=== PATIENT | female | born 1965 | race Caucasian/White ===

== ENCOUNTER 2020-07-29 06:09 | Outpatient (REF) | payer OTHER, SELFPAY ==
[2020-07-29 06:54] LABS: Basophils Percent Auto 0.4 % (0-2); Eosinophils Absolute Auto 0.4 X10*3/uL (0.0-0.4); Eosinophils Percent Auto 8.3 % (0-4); Hematocrit 42.2 % (37-47); Imm Gran Abs Auto 0.01 X10*3/uL (0.00-0.03); Imm Gran Pct Auto 0.2 % (0.0-0.4); Lymphocytes Absolute Auto 2.1 X10*3/uL (1.2-4.9); Lymphocytes Percent Auto 41.9 % (20-40); Mean Corpuscular HGB Conc 33.2 g/dl (31.0-35.0); Mean Corpuscular Hemoglobin 30.7 pg (27.0-33.0); Mean Corpuscular Volume 92.5 fL (80-98); Mean Platelet Volume 10.3 fL (9.4-12.3); Monocytes Absolute Auto 0.4 X10*3/uL (0.1-1.2); Monocytes Percent Auto 7.9 % (2-11); Neutrophils Percent Auto 41.3 % (45-73); Platelet Count 181 X10*3/uL (160-400); Red Blood Count 4.56 X10*6/uL (4.20-5.50); White Blood Count 4.9 X10*3/uL (4.8-10.8)
[2020-07-29 06:55] LABS: MANUAL DIFF FLAG NO
[2020-07-29 07:08] LABS: Glucose Urine UA NEG (NEG); Leukocyte Esterase Urine NEG (NEG); Nitrite Urine NEG (NEG); PH 7.5 (5.0-8.0); Specific Gravity - Urine 1.015 (1.005-1.025); Urine Blood NEG (NEG); Urine Ketones NEG (NEG); Urine Protein NEG (NEG-TRACE)
[2020-07-29 07:09] LABS: Appearance Urine CLEAR; Color Urine YELLOW
[2020-07-29 07:26] LABS: Alanine Aminotransferase 21 U/L (0-31); Albumin Level 4.3 g/dL (3.5-5.0); Alkaline Phosphatase 85 U/L (39-117); Amylase 132 U/L (28-100); Anion Gap 10 (12-20); Aspartate Amino Transferase 23 U/L (5-31); Bilirubin Direct 0.4 mg/dL (0.0-0.5); Bilirubin Total 0.8 mg/dL (0.0-1.0); Blood Urea Nitrogen 12 mg/dL (9-16); Calcium 9.4 mg/dL (8.4-10.2); Carbon Dioxide 30 mmol/L (22-29); Chloride 102 mmol/L (96-108); Estimated Glomerular Filt Rate > 60; Glucose Fasting 99 mg/dL (60-99); Lipase 36 U/L (8-78); Potassium 4.4 mmol/l (3.3-5.1); Sodium 138 mmol/L (135-145); Total Protein 7.2 g/dL (6.5-8.0)
== END 2020-07-29 06:10 | disposition home or self-care (01) ==
LOC: HO.LAB 06:09
PROVIDERS: PCP Internal Medicine; Visit Provider Internal Medicine
DX: R10.9 Unspecified abdominal pain (principal)
CPT/HCPCS: 36415; 80053; 80076; 81003; 82150; 82248; 83690; 85025

== ENCOUNTER 2021-01-05 09:39 | Outpatient (REF) | payer OTHER, SELFPAY ==
[2021-01-05 11:11] LABS: MANUAL DIFF FLAG NO
[2021-01-05 11:32] LABS: Basophils Percent Auto 0.6 % (0-2); Eosinophils Absolute Auto 0.5 X10*3/uL (0.0-0.4); Eosinophils Percent Auto 8.6 % (0-4); Hematocrit 40.9 % (37-47); Hemoglobin 13.7 g/dl (12.0-16.0); Imm Gran Abs Auto 0.01 X10*3/uL (0.00-0.03); Imm Gran Pct Auto 0.2 % (0.0-0.4); Lymphocytes Percent Auto 37.5 % (20-40); Mean Corpuscular HGB Conc 33.5 g/dl (31.0-35.0); Mean Corpuscular Volume 92.5 fL (80-98); Mean Platelet Volume 10.3 fL (9.4-12.3); Monocytes Absolute Auto 0.4 X10*3/uL (0.1-1.2); Monocytes Percent Auto 6.8 % (2-11); Neutrophils Absolute Auto 2.5 X10*3/uL (2.0-8.3); Neutrophils Percent Auto 46.3 % (45-73); Platelet Count 192 X10*3/uL (160-400); Red Blood Count 4.42 X10*6/uL (4.20-5.50); Red Cell Distribution Width 11.6 % (11.0-16.0); White Blood Count 5.3 X10*3/uL (4.8-10.8)
[2021-01-05 12:00] LABS: Alanine Aminotransferase 14 U/L (0-31); Albumin Level 4.2 g/dL (3.5-5.0); Alkaline Phosphatase 83 U/L (39-117); Anion Gap 12 (12-20); Aspartate Amino Transferase 17 U/L (5-31); Bilirubin Total 0.9 mg/dL (0.0-1.0); Blood Urea Nitrogen 16 mg/dL (9-16); Calcium 9.5 mg/dL (8.4-10.2); Carbon Dioxide 28 mmol/L (22-29); Chloride 106 mmol/L (96-108); Cholesterol 146 mg/dL; Estimated Glomerular Filt Rate > 60; Glucose Fasting 85 mg/dL (60-99); HDL Cholesterol 50 mg/dL; LDL Cholesterol Calculated 79 mg/dl; Potassium 4.5 mmol/L (3.3-5.1); Sodium 141 mmol/L (135-145); Total Protein 6.8 g/dL (6.5-8.0); Triglycerides 86 mg/dL
[2021-01-05 12:07] LABS: Thyroid Stimulating Hormone 1.07 uIU/mL (0.32-4.0)
== END 2021-01-05 09:40 | disposition home or self-care (01) ==
LOC: HO.MANLDS 09:39
PROVIDERS: PCP Internal Medicine; Visit Provider Internal Medicine
DX: Z00.00 Encounter for general adult medical examination without abnormal findings (principal)
CPT/HCPCS: 36415; 80053; 80061; 84443; 85025

== ENCOUNTER 2021-03-19 07:17 | Outpatient (REF) | payer OTHER, SELFPAY ==
--- NOTE | ~2021-03-19 | MM_ITS ---
EXAMINATION: MM SCREENING DIGITAL BREAST TOMOSYNTHESIS, BILATERAL CLINICAL INFORMATION: Screening. Asymptomatic. The lifetime risk of breast cancer based on the Tyrer-Cuzick Model is 14%. COMPARISON: Mammography: 03/25/2020, 03/10/2020, 02/27/2019, 02/23/2018; targeted right breast ultrasound 03/25/2020 TECHNIQUE: Digital breast tomosynthesis is performed in both the craniocaudal and mediolateral oblique views along with computer-aided detection (CAD). Synthesized 2D images are generated from the tomosynthesis. FINDINGS: There are scattered areas of fibroglandular density (ACR BI-RADS breast composition Category b). There are no significant masses, abnormal calcifications, or other abnormalities. The small cyst mid medial right breast has regressed since prior imaging, no longer clearly seen. The axilla and skin contours are unremarkable. MM/MM tomosynthesis screening BI IMPRESSION: There are no significant changes from prior study. ASSESSMENT: BI-RADS 2: Benign RECOMMENDATION: Routine annual mammography screening. This patient's information was entered into a reminder system with a target due date for their next mammogram.
== END 2021-03-19 07:18 | disposition home or self-care (01) ==
LOC: HO.MAMMO 07:17
PROVIDERS: PCP Internal Medicine; Visit Provider Internal Medicine
DX: Z12.31 Encounter for screening mammogram for malignant neoplasm of breast (principal)
CPT/HCPCS: 77063; 77067

== ENCOUNTER 2022-03-23 07:16 | Outpatient (REF) | payer OTHER, SELFPAY ==
--- NOTE | ~2022-03-23 | MM_ITS ---
EXAMINATION: MM SCREENING DIGITAL BREAST TOMOSYNTHESIS, BILATERAL CLINICAL INFORMATION: Screening. Asymptomatic. The lifetime risk of breast cancer based on the Tyrer-Cuzick Model is 11.0%. COMPARISON: Mammography: March 19, 2021 and studies dating back to January 04, 2014 TECHNIQUE: Digital breast tomosynthesis is performed in both the craniocaudal and mediolateral oblique views along with computer-aided detection (CAD). Synthesized 2D images are generated from the tomosynthesis. FINDINGS: There are scattered areas of fibroglandular density (ACR BI-RADS breast composition Category b). There are no significant masses, abnormal calcifications, or other abnormalities. MM/MM tomosynthesis screening BI IMPRESSION: There are no significant changes from prior study. ASSESSMENT: BI-RADS 1: Negative RECOMMENDATION: Routine annual mammography screening. This patient's information was entered into a reminder system with a target due date for their next mammogram.
== END 2022-03-23 07:17 | disposition home or self-care (01) ==
LOC: HO.MAMMO 07:16
PROVIDERS: Visit Provider Internal Medicine
DX: Z12.31 Encounter for screening mammogram for malignant neoplasm of breast (principal)
CPT/HCPCS: 77063; 77067

== ENCOUNTER 2022-04-30 07:45 | Outpatient (REF) | payer OTHER, SELFPAY ==
--- NOTE | ~2022-04-30 | XR_ITS ---
EXAMINATION: XR THORACIC SPINE XR RIBS, LEFT CLINICAL INFORMATION: Left-sided rib pain. Pain thoracic spine. COMPARISON: CTA chest 09/15/2018 CT abdomen and pelvis 11/15/2017. TECHNIQUE: Thoracic spine is imaged in 3 views. Left ribs are imaged in 3 views. There are total of 6 views. FINDINGS: There is normal thoracic segmentation with 12 rib-bearing thoracic vertebrae and normal thoracic kyphosis. There is mild chronic wedging at T12 similar to the CT 2018 and 2017. There is no interval vertebral compression, spondylolisthesis, destructive process, or paraspinal soft tissue swelling. No interval focal disc narrowing or erosive changes or endplate sclerosis. The left ribs show no visible fracture or destructive process. There are degenerative disc changes mid cervical spine. XR/XR thoracic spine 2V IMPRESSION: -Thoracic: No acute abnormality. -Left ribs: No visible fracture or destructive process.
--- NOTE | ~2022-04-30 | XR_ITS ---
EXAMINATION: XR THORACIC SPINE XR RIBS, LEFT CLINICAL INFORMATION: Left-sided rib pain. Pain thoracic spine. COMPARISON: CTA chest 09/15/2018 CT abdomen and pelvis 11/15/2017. TECHNIQUE: Thoracic spine is imaged in 3 views. Left ribs are imaged in 3 views. There are total of 6 views. FINDINGS: There is normal thoracic segmentation with 12 rib-bearing thoracic vertebrae and normal thoracic kyphosis. There is mild chronic wedging at T12 similar to the CT 2018 and 2017. There is no interval vertebral compression, spondylolisthesis, destructive process, or paraspinal soft tissue swelling. No interval focal disc narrowing or erosive changes or endplate sclerosis. The left ribs show no visible fracture or destructive process. There are degenerative disc changes mid cervical spine. XR/XR ribs LT 2V IMPRESSION: -Thoracic: No acute abnormality. -Left ribs: No visible fracture or destructive process.
[2022-04-30 08:31] LABS: MANUAL DIFF FLAG NO
[2022-04-30 09:14] LABS: Basophils Percent Auto 0.8 % (0-2); Eosinophils Absolute Auto 0.5 X10*3/uL (0.0-0.4); Eosinophils Percent Auto 10.9 % (0-4); Hemoglobin 13.6 g/dl (12.0-16.0); Imm Gran Abs Auto 0.01 X10*3/uL (0.00-0.03); Imm Gran Pct Auto 0.2 % (0.0-0.4); Lymphocytes Absolute Auto 1.8 X10*3/uL (1.2-4.9); Mean Corpuscular HGB Conc 33.2 g/dl (31.0-35.0); Mean Corpuscular Volume 90.5 fL (80.0-98.0); Monocytes Absolute Auto 0.3 X10*3/uL (0.1-1.2); Monocytes Percent Auto 7.1 % (2-11); Neutrophils Absolute Auto 2.1 x10*3/uL (2.0-8.3); Platelet Count 195 X10*3/uL (160-400); Red Blood Count 4.53 X10*6/uL (4.20-5.50); Red Cell Distribution Width 12.3 % (11.0-16.0); White Blood Count 4.8 X10*3/uL (4.8-10.8)
[2022-04-30 09:46] LABS: Alanine Aminotransferase 17 U/L (0-31); Alkaline Phosphatase 81 U/L (39-117); Anion Gap 14 (12-20); Aspartate Amino Transferase 19 U/L (5-31); Bilirubin Total 0.5 mg/dL (0.0-1.0); Blood Urea Nitrogen 18 mg/dL (9-16); Calcium 9.2 mg/dL (8.4-10.2); Carbon Dioxide 27 mmol/L (22-29); Chloride 107 mmol/L (96-108); Cholesterol 158 mg/dL; Estimated Glomerular Filt Rate > 60; Glucose Random 97 mg/dL (60-115); HDL Cholesterol 59 mg/dL; LDL Cholesterol Calculated 88 mg/dl; Potassium 4.8 mmol/L (3.3-5.1); Sodium 143 mmol/L (135-145); Total Protein 6.8 g/dL (6.5-8.0); Triglycerides 58 mg/dL
[2022-04-30 10:09] LABS: Thyroid Stimulating Hormone 1.26 uIU/mL (0.32-4.0)
== END 2022-04-30 07:46 | disposition home or self-care (01) ==
LOC: HO.LAB 07:45
PROVIDERS: PCP Internal Medicine; Visit Provider Internal Medicine
DX: Z00.01 Encounter for general adult medical examination with abnormal findings (principal); M54.6 Pain in thoracic spine; R07.81 Pleurodynia
CPT/HCPCS: 36415; 71100; 72070; 80053; 80061; 82306; 84443; 85025

== ENCOUNTER 2022-10-18 16:08 | Outpatient (REF) | payer OTHER, SELFPAY ==
[2022-10-18 18:11] LABS: Appearance Urine Cloudy; Color Urine Yellow; Glucose Urine UA Negative (Negative); Leukocyte Esterase Urine Trace (Negative); Nitrite Urine Negative (Negative); PH 5.5 (5.0-9.0); Specific Gravity - Urine >= 1.030 (1.005-1.025); UMIC TRIGGER UACC YES; Urine Blood Negative (Negative); Urine Ketones Trace mg/dL (Negative); Urine Protein Trace mg/dL (Neg-Trace)
[2022-10-18 18:18] LABS: Bacteria Urine None Seen (None Seen); Calcium Oxalate Crystals Urine Present; Hyaline Casts Urine 0-2 /LPF (0-2); Squamous Epithelial Cell Urine 0-2 /HPF (0-2); WBC Urine 0-5 /HPF (0-5)
== END 2022-10-18 16:09 | disposition home or self-care (01) ==
LOC: HO.MANLDS 16:08
PROVIDERS: Visit Provider Physician Assistant
DX: N10 Acute pyelonephritis (principal)
CPT/HCPCS: 81001; 87086

== ENCOUNTER 2022-10-19 16:17 | Outpatient (REF) | payer OTHER, SELFPAY ==
[2022-10-19 17:55] LABS: Anion Gap 13 (12-20); Blood Urea Nitrogen 13 mg/dL (9-16); Calcium 8.8 mg/dL (8.4-10.2); Carbon Dioxide 26 mmol/L (22-29); Chloride 106 mmol/L (96-108); Estimated Glomerular Filt Rate > 60; Glucose Random 91 mg/dL (60-115); Potassium 3.8 mmol/L (3.3-5.1); Sodium 141 mmol/L (135-145)
== END 2022-10-19 16:18 | disposition home or self-care (01) ==
LOC: HO.LAB 16:17
PROVIDERS: PCP Internal Medicine; Visit Provider Physician Assistant
DX: R10.12 Left upper quadrant pain (principal); N10 Acute pyelonephritis
CPT/HCPCS: 36415; 80048

== ENCOUNTER 2022-10-21 08:44 | Outpatient (REF) | payer OTHER, SELFPAY ==
--- NOTE | ~2022-10-21 | CT_ITS ---
EXAMINATION: CT ABDOMEN AND PELVIS WITHOUT CONTRAST CLINICAL INFORMATION: Left upper quadrant pain COMPARISON: Previous CT of the abdomen and pelvis November 2017 TECHNIQUE: Multidetector volumetric imaging was performed from the superior aspect of the liver through the pubic symphysis. Sagittal and coronal reformatted images were obtained on the technologist's workstation. This CT examination was performed using dose optimization techniques as appropriate, variously including the following: *Automated exposure control *Adjustment of mA and/or kV according to patient size (this includes techniques or standardized protocols for targeted exams where dose is matched to indication/reason for exam; i.e. extremities or head) *Use of iterative reconstruction technique DLP: 486 mGy-cm FINDINGS: LUNG BASES: The visualized lung bases are unremarkable. LIVER, GALLBLADDER, AND BILIARY TREE: The liver is normal in size, shape, and attenuation. No focal hepatic lesion or biliary ductal dilatation is present. The gallbladder has been removed. PANCREAS: Unremarkable. SPLEEN: Unremarkable. ADRENAL GLANDS: Unremarkable. KIDNEYS AND URETERS: The kidneys are normal in size, shape, and attenuation. No hydronephrosis, hydroureter, or calculi seen. No perinephric stranding. BLADDER: Unremarkable. GASTROINTESTINAL TRACT: Mild diverticulosis of the colon. The small and large bowel are otherwise unremarkable. The appendix is unremarkable. ABDOMINAL WALL: No significant hernia is appreciated. LYMPH NODES: Normal. VASCULAR: Unremarkable. PELVIC VISCERA: Unremarkable. OSSEOUS STRUCTURES: Unremarkable. CT/CT abdomen pelvis wo IV con IMPRESSION: Mild diverticulosis. No evidence of diverticulitis. Fleischner guidelines were followed.
[2022-10-21] MEDS: Barium Sulfate Oral (Mocha) 450 ML ORAL.SUSP 900 ML PO (11:25)
== END 2022-10-21 08:45 | disposition home or self-care (01) ==
LOC: HO.CT 08:44
PROVIDERS: PCP Internal Medicine; Visit Provider Physician Assistant
DX: R10.12 Left upper quadrant pain (principal)
CPT/HCPCS: 74176

== ENCOUNTER 2023-04-19 07:27 | Outpatient (REF) | payer OTHER, SELFPAY | END 2023-04-19 07:28 | disposition home or self-care (01) | LOC: HO.MAMMO 07:27 | PROVIDERS: PCP Internal Medicine; Visit Provider Internal Medicine | DX: Z12.31 Encounter for screening mammogram for malignant neoplasm of breast (principal) | CPT/HCPCS: 77063; 77067 ==

== ENCOUNTER → 2023-04-19 07:45 | Outpatient (BNV) | payer OTHER, SELFPAY | PROVIDERS: PCP Internal Medicine; Visit Provider Radiology Diagnostic Radiology | DX: Z12.31 Encounter for screening mammogram for malignant neoplasm of breast (principal) | CPT/HCPCS: 77063; 77067 ==

== ENCOUNTER 2023-05-19 06:43 | Outpatient (REF) | payer OTHER, SELFPAY ==
[2023-05-19 07:06] LABS: MANUAL DIFF FLAG NO
[2023-05-19 08:12] LABS: Basophils Percent Auto 0.6 % (0-2); Eosinophils Absolute Auto 0.3 X10*3/uL (0.0-0.4); Eosinophils Percent Auto 5.6 % (0-4); Hematocrit 42.8 % (37.0-47.0); Imm Gran Abs Auto 0.01 X10*3/uL (0.00-0.03); Imm Gran Pct Auto 0.2 % (0.0-0.4); Lymphocytes Absolute Auto 1.7 X10*3/uL (1.2-4.9); Lymphocytes Percent Auto 36.8 % (20-40); Mean Corpuscular HGB Conc 32.7 g/dl (31.0-35.0); Mean Corpuscular Hemoglobin 30.5 pg (27.0-33.0); Mean Corpuscular Volume 93.2 fL (80.0-98.0); Mean Platelet Volume 10.5 fL (9.4-12.3); Monocytes Absolute Auto 0.3 X10*3/uL (0.1-1.2); Monocytes Percent Auto 6.7 % (2-11); Neutrophils Absolute Auto 2.3 x10*3/uL (2.0-8.3); Neutrophils Percent Auto 50.1 % (45-73); Platelet Count 191 X10*3/uL (160-400); Red Blood Count 4.59 X10*6/uL (4.20-5.50); Red Cell Distribution Width 12.4 % (11.0-16.0); White Blood Count 4.7 X10*3/uL (4.8-10.8)
[2023-05-19 08:38] LABS: Estimated Average Glucose 108 mg/dL; Hemoglobin A1c % 5.4 % (<6.0)
[2023-05-19 08:57] LABS: Alanine Aminotransferase 20 U/L (0-31); Albumin Level 4.3 g/dL (3.5-5.0); Alkaline Phosphatase 83 U/L (39-117); Anion Gap 13 (12-20); Aspartate Amino Transferase 19 U/L (5-31); Bilirubin Total 0.5 mg/dL (0.0-1.0); Blood Urea Nitrogen 18 mg/dL (9-16); C Reactive Protein 0.24 mg/dL (< or = 0.50); Calcium 9.6 mg/dL (8.4-10.2); Carbon Dioxide 26 mmol/L (22-29); Chloride 108 mmol/L (96-108); Cholesterol 170 mg/dL (<200); Erythrocyte Sedimentation Rate 7 MM/HR (0-20); Estimated Glomerular Filt Rate > 60; Glucose Random 99 mg/dL (60-115); HDL Cholesterol 56 mg/dL (>40); Iron 101 mcg/dL (30-160); LDL Cholesterol Calculated 93 mg/dL (<100); Percent Iron Saturation 26 % (15-50); Potassium 4.3 mmol/L (3.3-5.1); Sodium 143 mmol/L (135-145); Total Iron Binding Capacity 384 mcg/dL (228-428); Total Protein 7.3 g/dL (6.5-8.0); Triglycerides 108 mg/dL (<150); Unsaturated Iron Binding 283 ug/dL; Uric Acid 3.9 mg/dL (2.4-5.7)
[2023-05-19 09:03] LABS: Ferritin 29 ng/mL (10-250); Thyroid Stimulating Hormone 1.18 uIU/mL (0.32-4.0); Vitamin D 25-OH Total 27.4 ng/mL (>30)
[2023-05-19 09:46] LABS: Rheumatoid Factor < 13.0 IU/mL (<15.0)
[2023-05-19 10:10] LABS: Folate 8.6 ng/mL (> or = 4.0); Vitamin B12 613 pg/mL (200-900)
[2023-05-22 07:53] LABS: Cyclic Citrullinated Peptide 25 UNITS
[2023-05-22 13:59] LABS: Calcium (PTHI) 9.4 mg/dL (8.6-10.4); PTHI 59 pg/mL (16-77)
[2023-05-22 14:38] LABS: Anti Nuclear Antibody Screen NEGATIVE (NEGATIVE)
[2023-05-22 19:44] LABS: Lyme Abs Screen <0.90 index
[2023-05-24 13:28] LABS: Anti DNA DS Antibody 1 IU/mL
== END 2023-05-19 06:44 | disposition home or self-care (01) ==
LOC: HO.LAB 06:43
PROVIDERS: PCP Internal Medicine; Visit Provider Physician Assistant
DX: M25.532 Pain in left wrist (principal); Z00.00 Encounter for general adult medical examination without abnormal findings
CPT/HCPCS: 36415; 80053; 80061; 82306; 82607; 82728; 82746; 83036; 83540; 83970; 84443; 84550; 85025; 85652; 86038; 86140; 86200; 86225; 86431; 86617; 86618

== ENCOUNTER 2024-04-24 07:31 | Outpatient (REF) | payer OTHER, SELFPAY ==
--- NOTE | ~2024-04-24 | MM_ITS ---
EXAMINATION: MM SCREENING DIGITAL BREAST TOMOSYNTHESIS, BILATERAL CLINICAL INFORMATION: Screening. Asymptomatic. COMPARISON: Mammography: Comparison is made with prior available imaging. TECHNIQUE: Digital breast tomosynthesis is performed in both the craniocaudal and mediolateral oblique views along with computer-aided detection (CAD). Synthesized 2D images are generated from the tomosynthesis. FINDINGS: There are scattered areas of fibroglandular density (ACR BI-RADS breast composition Category b). Circumscribed oval mass in the lower inner right breast posterior depth is decreased in size from 2020 was previously demonstrated to be simple cyst on prior ultrasound. There are no significant masses, abnormal calcifications, or other abnormalities. MM/MM tomosynthesis screening BI IMPRESSION: No mammographic evidence of malignancy. ASSESSMENT: BI-RADS BI-RADS 2 - Benign Findings RECOMMENDATION: Routine annual mammography screening. 1 year F/U This examination should not preclude the clinical evaluation of a suspicious palpable abnormality. This patient's information was entered into a reminder system with a target due date for their next mammogram. Electronically signed by: Miladis Reinoso DO 05/22/2024 08:18 PM EDT
== END 2024-04-24 07:32 | disposition home or self-care (01) ==
LOC: HO.MAMMO 07:31
PROVIDERS: PCP Internal Medicine; Visit Provider Internal Medicine
DX: Z12.31 Encounter for screening mammogram for malignant neoplasm of breast (principal)
CPT/HCPCS: 77063; 77067

== ENCOUNTER → 2024-04-24 07:45 | Outpatient (BNV) | payer OTHER, SELFPAY | PROVIDERS: PCP Internal Medicine; Visit Provider Internal Medicine | DX: Z12.31 Encounter for screening mammogram for malignant neoplasm of breast (principal) | CPT/HCPCS: 77063; 77067 ==

== ENCOUNTER 2024-05-31 06:36 | Outpatient (REF) | payer OTHER, SELFPAY ==
[2024-05-31 06:47] LABS: MANUAL DIFF FLAG NO
[2024-05-31 07:15] LABS: Basophils Percent Auto 0.6 % (0-2); Eosinophils Absolute Auto 0.4 X10*3/uL (0.0-0.4); Eosinophils Percent Auto 7.5 % (0-4); Hematocrit 39.3 % (37.0-47.0); Hemoglobin 13.2 g/dl (12.0-16.0); Imm Gran Abs Auto 0.01 X10*3/uL (0.00-0.03); Imm Gran Pct Auto 0.2 % (0.0-0.4); Lymphocytes Percent Auto 39.6 % (20-40); Mean Corpuscular HGB Conc 33.6 g/dl (31.0-35.0); Mean Corpuscular Hemoglobin 30.8 pg (27.0-33.0); Mean Corpuscular Volume 91.8 fL (80.0-98.0); Mean Platelet Volume 10.4 fL (9.4-12.3); Monocytes Absolute Auto 0.4 X10*3/uL (0.1-1.2); Monocytes Percent Auto 8.5 % (2-11); Neutrophils Absolute Auto 2.2 x10*3/uL (2.0-8.3); Neutrophils Percent Auto 43.6 % (45-73); Platelet Count 167 X10*3/uL (160-400); Red Blood Count 4.28 X10*6/uL (4.20-5.50); Red Cell Distribution Width 12.5 % (11.0-16.0); White Blood Count 5.1 X10*3/uL (4.8-10.8)
[2024-05-31 07:36] LABS: Estimated Average Glucose 111 mg/dL; Hemoglobin A1c % 5.5 % (<6.0)
[2024-05-31 08:19] LABS: Alanine Aminotransferase 19 U/L (0-31); Albumin Level 3.9 g/dL (3.5-5.0); Alkaline Phosphatase 92 U/L (39-117); Anion Gap 11 (12-20); Aspartate Amino Transferase 18 U/L (5-31); Bilirubin Total 0.4 mg/dL (0.0-1.0); Blood Urea Nitrogen 13 mg/dL (9-16); Calcium 9.4 mg/dL (8.4-10.2); Carbon Dioxide 24 mmol/L (22-29); Chloride 110 mmol/L (96-108); Cholesterol 141 mg/dL (<200); Estimated Glomerular Filt Rate > 60; Free T4 (Free Thyroxine) 1.04 ng/dL (0.71-1.85); Glucose Random 102 mg/dL (60-115); HDL Cholesterol 47 mg/dL (>40); LDL Cholesterol Calculated 68 mg/dL (<100); Potassium 4.3 mmol/L (3.3-5.1); Sodium 141 mmol/L (135-145); Thyroid Stimulating Hormone 1.36 uIU/mL (0.32-4.0); Total Protein 6.7 g/dL (6.5-8.0); Triglycerides 133 mg/dL (<150)
== END 2024-05-31 06:37 | disposition home or self-care (01) ==
LOC: HO.LAB 06:36
PROVIDERS: PCP Internal Medicine; Visit Provider Physician Assistant
DX: Z00.00 Encounter for general adult medical examination without abnormal findings (principal); Z13.1 Encounter for screening for diabetes mellitus
CPT/HCPCS: 36415; 80053; 80061; 83036; 84439; 84443; 85025

== ENCOUNTER 2025-05-07 07:33 | Outpatient (REF) | payer OTHER, SELFPAY ==
--- OUTSIDE RECORDS SUMMARY | 2025-05-07 07:37 | XMS_ITS | Encounter Summary ---
Author Organization [facility] Address [address] [place] [address] Phone Care Team Providers Care Corporate Associate Attorney Name Role Phone Mendoza Cross DO Unavailable Valentina Escalona MD Unavailable [phone] Dena Che LOCAL ANNOUNCER Unavailable [phone] [place]Karrie jaffe LOCAL ANNOUNCER Unavailable [phone] Mendoza Cross DO Primary Care Provider [phone] Reason for Referral * MRI/CAT Scan - Closed Specialty Diagnoses / Procedures Referred By Diego mckeon Referred To Contact Radiology Diagnoses Abdominal pain, unspecified abdominal location Procedures CT Abdomen/Pelvis Mendoza Cross DO Phone: tel: fax: [email or web address] Referral ID Status Reason Start Date Expiration Date Visits Re quested Visits Authorized [id number] Closed 07/29/2020 01/25/2021 1 1 Encounter Details Date Type Department Care Team (Late st Contact Info) Description 07/29/2020 Transcribe Orders Virtual Department [address] [place] [address] Mendoza Cross DO [address] [facility] [place] [address] Abdominal pain, unspecified abdominal location (Primary Dx) Social History Tobacco Use Types Packs/Day Years Used Date Smoking Tobacco: Never Smokeless Tobacco: Never Alcohol Use Standard Drinks/Week Comments Yes 1 (1 standard drink = 0.6 oz pur e alcohol) Comments No Sex and Gender Information Value Date Recorded Sex Assigned at Female 09/18/2018 2:45 PM EST Legal Sex Female 9:39 PM EDT Gender Identity Female 09/18/2018 2:45 PM EST Sexual Orientation Straight 09/18/2018 2: 45 PM EST documented as of this encounter Plan of Treatment Not on file documented as of this encounter Results * CT ABDOMEN/PELVIS WITH CONTRAST (08/06/2020 10:12 AM EST) Anatomical Region Laterality Modality Abdomen, Pelvis Computed Tomogra phy 08/06/2020 11:4 6 AM EST Impressions 08/06/2020 11:57 AM EST 1.No acute findings in the abdomen/pelvis. 2.Additional chronic findings as described above. Narrative 08/06/2020 11:57 AM EST EXAM: CT ABDOMEN/PELVIS WITH CONTRAST CT OF ABDOMEN AND PELVIS WITH INTRAVENOUS CONTRAST COMPARISON: Prior abdomen/pelvis CT on September 18, 2018 INDICATION: Abdominal pain, unspecified abdominal location. Outside Radiology Order Study notes from technologist: Left-sided pain radiating to back. TECHNIQUE: CT scan of the abdomen and pelvis was performed following the intravenous administration of 100 cc of Omnipaque 240 and oral contrast. Coronal and sagittal reformatted images were generated. Automated exposure control utilized. FINDINGS: LOWER THORAX: Lung bases are clear. No pleural effusion. HEPATOBILIARY: No hepatomegaly. No focal hepatic lesions. Minimal intrahepatic and extrahepatic biliary ductal dilatation, stable from prior study is likely physiologic secondary to status postcholecystectomy. SPLEEN: No splenomegaly. PANCREAS: Unremarkable. ADRENAL GLANDS: No mass. KIDNEYS AND URETERS: The kidneys enhance symmetrically. No hydronephrosis, hydroureter or solid mass. Tiny hypodense cortical left renal lesions could represent tiny cysts. STOMACH/GI TRACT: Oral contrast reaches the rectum without obstruction. Small amount of oral contrast in the distal esophagus may represent gastroesophageal reflux. Small hiatal hernia. Stomach is partially distended with oral contrast. Bowel loops are normal in caliber. Probable appendix identified in the right lower quadrant (2:63) is partially filled with oral contrast. Few scattered diverticula throughout the distal colon. PELVIC ORGANS/BLADDER: Urinary bladder is partially distended and grossly unremarkable. Uterus is small in size. PERITONEUM AND RETROPERITONEUM: No free fluid or fluid collection. No free air. LYMPH NODES: No adenopathy. VESSELS: Abdominal aorta and iliac arteries are normal in caliber. Inferior vena cava is unremarkable. BONES AND SOFT TISSUES: Soft tissues are unremarkable. No acute or suspicious osseous abnormalities. Procedure Note Jamarcus Dunn MD - 08/06/2020 EXAM: CT ABDOMEN/PELVIS WITH CONTRAST CT OF ABDOMEN AND PELVIS WITH INTRAVENOUS CONTRAST COMPARISON: Prior abdomen/pelvis CT on September 18, 2018 INDICATION: Abdominal pain, unspecified abdominal location. OutsideRadiology Order Study notes from technologist: Left-sided pain radiating to back. TECHNIQUE: CT scan of the abdomen and pelvis was performed following theintravenous administration of 100 cc of Omnipaque 240 and oral contrast.Coronal and sagittal reformatted images were generated. Automatedexposure control utilized. FINDINGS: LOWER THORAX: Lung bases are clear. No pleural effusion. HEPATOBILIARY: No hepatomegaly. No focal hepatic lesions. Minimalintrahepatic and extrahepatic biliary ductal dilatation, stable from priorstudy is likely physiologic secondary to status postcholecystectomy. SPLEEN: No splenomegaly. PANCREAS: Unremarkable. ADRENAL GLANDS: No mass. KIDNEYS AND URETERS: The kidneys enhance symmetrically. Nohydronephrosis, hydroureter or solid mass. Tiny hypodense cortical leftrenal lesions could represent tiny cysts. STOMACH/GI TRACT: Oral contrast reaches the rectum without obstruction.Small amount of oral contrast in the distal esophagus may representgastroesophageal reflux. Small hiatal hernia. Stomach is partiallydistended with oral contrast. Bowel loops are normal in caliber. Probableappendix identified in the right lower quadrant (2:63) is partially filledwith oral contrast. Few scattered diverticula throughout the distalcolon. PELVIC ORGANS/BLADDER: Urinary bladder is partially distended and grosslyunremarkable. Uterus is small in size. PERITONEUM AND RETROPERITONEUM: No free fluid or fluid collection. No freeair. LYMPH NODES: No adenopathy. VESSELS: Abdominal aorta and iliac arteries are normal in caliber.Inferior vena cava is unremarkable. BONES AND SOFT TISSUES: Soft tissues are unremarkable. No acute orsuspicious osseous abnormalities. IMPRESSION: 1.No acute findings in the abdomen/pelvis. 2.Additional chronic findings as described above. us Mendoza Cross DO IMG CT ABD/PELVIS Final Result documented in this encounter Visit Diagnoses Diagnosis Abdominal pain, unspecified abdominal location- Primary Abdominal pain, unspecified abdominal location documented in this encounter Additional Health Concerns Infection Onset Date Last Indicated Resolved Time CoV-Risk 12/30/2021 12/30/2021 12/31/2021 11:5 8 AM EDT COVID-19 12/30/2021 12/30/2021 01/20/2022 1:22 AM EDT documented as of this encounter Care Teams Corporate Associate Attorney Relationship Specialty Start Date End Date Mendoza Cross DO PCP - General 09/07/17 Mendoza Cross DO Historical LMR Provider 06/19/17 Valentina Escalona MD [address] [place] [address], [address] [place] [id number] Historical LMR Provider 06/19/17 09/11/21 Dena Che NP [address] [place] [id number] [email or web address] Historical LMR Provider 06/19/17 2 Karrie Umaña NP [address] [place] [id number] Historical LMR Provider 06/19/17 2 documented as of this encounter Additional Source Comments The information contained in this document represents components of the legal health record. It is not the complete legal health record.[facility]
--- OUTSIDE RECORDS SUMMARY | 2025-05-07 07:37 | XMS_ITS | Encounter Summary ---
Author Organization [facility] Address [address] [place] [id number] Phone Care Team Providers Care Band Reamer Machine Operator Name Role Phone Mendoza Cross DO Unavailable Valentina Escalona MD Unavailable Dena Che SCIENTIFIC SYSTEMS ANALYST Unavailable [phone] [place]rie jaffe SCIENTIFIC SYSTEMS ANALYST Unavailable Mendoza Cross DO Primary Care Provider [phone] Encounter Details Date Type Department Care Team (Late st Contact Info) Description 07/29/2020 Procedure Pass [facility], Ct Scan - [address] [address] Social History Tobacco Use Types Packs/Day Years [...] on file documented as of this encounter Visit Diagnoses Not on filedocumented in this encounter Additional Health Concerns Infection Onset Date Last Indicated Resolved Time CoV-Risk 12/30/2021 12/30/2021 12/31/2021 11:5 8 AM EDT COVID-19 12/30/2021 12/30/2021 01/20/2022 1:22 AM EDT documented as of this encounter Care Teams Band Reamer Machine Operator Relationship Specialty Start Date End Date Huangphong Mendoza HernandezDO PCP - General 09/07/17 Mendoza Cross DO Historical LMR Provider 06/19/17 Valentina Escalona MD [address] [address] Historical LMR Provider 06/19/17 09/11/21 Dena Che NP [address] [place] [address] [email or web address] Historical LMR Provider 06/19/17 2 Karrie Umaña NP [address] [place] [address] Historical LMR Provider 06/19/17 2 documented as of this encounter Additional Source Comments The information contained in this document represents components of the legal health record. It is not the complete legal health record.[facility]
--- OUTSIDE RECORDS SUMMARY | 2025-05-07 07:37 | XMS_ITS | Clinical Summary ---
Author Organization [facility] Address [address] [facility] [address] [place] [address] Phone Care Team Providers Care Commercial Sales Representative Name Role Phone Ru Frankel DO Unavailable HuangRu darling DO Primary Care Provider [phone] Allergies Active Allergy Reactions Criticality Noted Date Comments Erythromycin Hives 09/18/2017 Medications cyanocobalamin (VITAMIN B-12) 1,000 mcg/mL injection INJECT 1 MILLILITER DIRECTED EVERY MONTH 2 Active famotidine (PEPCID) 40 MG tablet Take 40 mg by mouth nightly at bedtime. 3 Active RESTASIS 0.05 % suspension USE 1 DROP INTO EACH EYE TWICE DAILY 3 Active omeprazole (PRILOSEC) 20 MG capsule take 1 capsule by mouth every day 30 minutes before breakfast 3 Active ibuprofen (ADVIL,MOTRIN) 200 MG tablet Take 600 mg by mouth every 6 (six) hours as needed for pain (specific location in comments). Active Active Problems Problem Noted Date Diagnosed Date Gastroparesis 09/18/2018 Cobalamin deficiency 04/04/2018 Gastroesophageal reflux disease 03/23/2018 Resolved Problems Problem Noted Date Diagnosed Date Resolved Date Helicobacter pylori gastroin testinal tract infection 09/18/2018 12/30/2021 Immunizations Immunization Administration Dates Next Due COVID-19 (Pre-06/26) Pfizer Vaccine, mRNA, PF ,12/26/2020 Td, unspecified formulation 10/29/2002 Social History Tobacco Use Types Packs/Day Years Used Date Smoking Tobacco: Never Smokeless Tobacco: Never Alcohol Use Standard Drinks/Week Comments Yes 1 (1 standard drink = 0.6 oz pur e alcohol) once a month Education Answer Date Recorded Are you interested in more education? Not on adal e 12/30/2022 Are you concerned about learning? Not on file 12/30/2022 No 12/30/2022 No 12/30/2022 Digital Access Answer Date Recorded No 01/28/2023 No 01/28/2023 Reliable internet access at home? Not on file 01/28/2023 Device with a working camera? Not on file Intimate Partner Violence Answer Date R ecorded Denied Basic Needs Not on file 07/18/2023 In the past 12 months have y ou been in a relationship with a person who hurts, threatens, or tries to control you? No 07/18/2023 Worried food would run out Not on file 07/18 In the past 12 months have y ou been in a relationship with a person who hurts, threatens, or tries to control you? No 07/18/2023 Comments No Sex and Gender Information Value Date Recorded Sex Assigned at Female 09/18/2018 2:45 PM EST Legal Sex Female 9:39 PM EDT Gender Identity Female 09/18/2018 2:45 PM EST Sexual Orientation Straight 09/18/2018 2: 45 PM EST Last Filed Vital Signs Vital Sign Reading Time Taken Comments Blood Pressure 136/89 03/19/2024 5:48 PM EDT Pulse 69 03/19/2024 5:48 PM EDT Temperature 36.9 C (98.4 F) 03/19/2024 5:48 PM EDT Respiratory Rate 14 03/19/2024 5:48 PM EDT Oxygen Saturation 97% 03/19/2024 5:48 PM EDT Inhaled Oxygen Concentration - - Weight 70.3 kg (155 lb) 07/18/2023 12:11 PM EST Height 165.1 cm (5' 5 ) 07/18/2023 12:11 PM EST Body Mass Index 25.79 07/18/2023 12:11 PM EST Plan of Treatment Health Maintenance Due Date Last Done Comments DEPRESSION SCREENING 1979 HEPATITIS C SCREENING 1985 HIV ONE-TIME SCREENING (18-6 5 YEARS) 1985 PAP SMEAR 02/27/1988 MAMMOGRAM 2007 COLOGUARD 02/27/2012 FIT TEST 02/27/2012 FOBT 02/27/2012 SIGMOIDOSCOPY 02/27/2012 VIRTUAL COLONOSCOPY 02/27/2012 Adult Td,Tdap Booster 10/29/2012 10/29/2002 LIPID PANEL 09/08/2015 09/08/2010 PNEUMOCOCCAL VACCINES (50+ years) (1 of 1 - PCV) 2017 ZOSTER VACCINES (1 of 2) 2017 INFLUENZA VACCINE (#1) 2025 COVID-19 VACCINE (2024-2 6 season) 2025 08/21/2021, 01/16/2021, 12/26/2020 SCREENING FOR DIABETES 07/04/2025 07/04/2022 COLONOSCOPY 07/20/2033 07/20/2023, 04/18/2018 COLORECTAL CANCER SCREENING 07/20/2033 SMOKING STATUS SCREENING (On ce After 26 Yrs) Completed 03/19/2024 HEPATITIS A VACCINES Aged Out No long er eligible based on patient's age to complete this topic HIB VACCINES Aged Out No longer eligi ble based on patient's age to complete this topic MENINGOCOCCAL VACCINES (ACWY) Aged Out No longer eligible based on patient's age to complete this topic MENINGOCOCCAL VACCINES (B) Aged Out N o longer eligible based on patient's age to complete this topic Medical Devices Not on file Procedures Procedure Name Priority Date/Time Associated Diagnosis Comments ENDOSCOPY, COLON 07/20/2023 7:28 AM EST OUTSIDE LDL Routine 09/08/2010 from Last 3 Months or Most Recently Relevant to Health Maintenance Results * ENDOSCOPY, COLON (07/20/2023 7:28 AM EST) Narrative Transcriptions Debra Stevens MD - 07/20/2023 7:28 AM EST [facility] Patient Name: Chiquis Yang Attending MD:: DEBRA STEVENS MD, Procedure Date: 07/20/2023 7:28 AM Date of : 1965 Age: 58 Admit Type: Outpatient Gender: Female Room: [facility] 05 Referring MD: RU FRANKEL DO Exam Type: Colonoscopy Indications: Last colonoscopy: April 2018, Abdominal pain inthe left upper quadrant Medications: Propofol per Anesthesia Procedure: Informed consent was obtained from the patientafter discussion of the indications, limitations, alternatives, benefits, and risks of the procedure. Risks specifically discussed include but are not limited to medication reactions, missed lesions, bleeding, perforation, or the need for emergent surgery. Throughout the procedure, the patient's blood pressure, pulse, end-tidal CO2, and oxygensaturations were monitored continuously. The Olympus adult variable colonoscope [id number] #2 was introduced through the anus and advanced to the terminal ileum, with identification of theappendiceal orifice and IC valve. The terminal ileum, the appendiceal orifice and the rectum werephotographed. The colonoscopy was performed without difficulty.The patient tolerated the procedure well. The qualityof the bowel preparation was excellent. The bowel preparation used was Miralax via split dose instruction. Complications: No immediate complications. Estimated blood loss:None. Findings: The digital rectal exam was normal. Pertinent negatives include no palpable rectal lesions. Hemorrhoids were found on perianal exam. Retroflexion in the rectum was not easilyaccomplished but a careful foreward view was obtained. Many diverticula were found in the sigmoid colon. Scattered medium-mouthed diverticula were found inthe transverse colon and ascending colon. The terminal ileum appeared normal. Retroflexion in the right colon was performed. Impression: - Hemorrhoids found on perianal exam. - Diverticulosis in the sigmoid colon. - Diverticulosis in the transverse colon and in the ascending colon. - The examined portion of the ileum was normal. - No specimens collected. Recommendation: - Repeat colonoscopy in 10 years for screening purposes. DEBRA STEVENS MD 07/20/2023 8:01:26 AM This report has been signed electronically. Number of Addenda: 0 Note Initiated On: 07/20/2023 7:28 AM Procedure Code(s): --- Professional --- 50823, Colonoscopy, flexible; diagnostic, including collection of specimen(s) by brushing or washing, when performed (separateprocedure) --- Technical --- 67100, Colonoscopy, flexible; diagnostic, including collection of specimen(s) by brushing or washing, when performed (separateprocedure) Diagnosis Code(s): --- Professional --- K64.9, Unspecified hemorrhoids R10.12, Left upper quadrant pain K57.30, Diverticulosis of large intestine without perforation or abscess without bleeding --- Technical --- K64.9, Unspecified hemorrhoids R10.12, Left upper quadrant pain K57.30, Diverticulosis of large intestine without perforation or abscess without bleeding CPT copyright 2021 [employer]. All rights reserved. The codes documented in this report are preliminary and upon custodian manager reviewmay be revised to meet current compliance requirements. Procedure Date: 07/20/2023 7:28:[address] [place] [address] [id number] us Ru A Bigda DO GI PROCEDURE ORDERABLES Final Re sult * Outside LDL (09/08/2010) LDL - External 83 50 - 250 mg/ml us Historical Provider LAB BLOOD ORDERABLES Yaneth l Result from Last 3 Months or Most Recently Relevant to Health Maintenance Insurance [place] [address] [place] [address] HMO HMO O O O O O Care Teams Commercial Sales Representative Relationship Specialty Start Date End Date Ru Frankel DO PCP - General 09/07/17 Ru Frankel DO Historical LMR Provider 06/19/17 Additional Source Comments The information contained in this document represents components of the legal health record. It is not the complete legal health record.[facility]
--- OUTSIDE RECORDS SUMMARY | 2025-05-07 07:37 | XMS_ITS | Encounter Summary ---
Author Organization [facility] Address [address] [address] [place] [address] Phone Care Team Providers Care Dry Paste Supervisor Name Role Phone America Mendoza Hernandez DO Unavailable Valentina Escalona MD Unavailable [phone] Dena Che DRESS DESIGNER Unavailable Karrie Umaña DRESS DESIGNER Unavailable Mendoza Cross DO Primary Care Provider [phone] Encounter Details Date Type Department Care Team (Late st Contact Info) Description 04/09/2019 Ancillary Orders Virtual Department [address] [place] [address] Lashaun Bradley, BARBARA [address]. [address] [place] [address] Other specified disorders of bone density and structure, unspecified site; Osteopenia, unspecified location Social History Tobacco Use Types Packs/Day Years [...] documented as of this encounter Visit Diagnoses Diagnosis Other specified disorders of bone density and structure, unspecified site Osteopenia, unspecified location documented in this encounter Additional Health Concerns Infection Onset Date Last Indicated Resolved Time CoV-Risk 12/30/2021 12/30/2021 12/31/2021 11:5 8 AM EDT COVID-19 12/30/2021 12/30/2021 01/20/2022 1:22 AM EDT documented as of this encounter Care Teams Dry Paste Supervisor Relationship Specialty Start Date End Date Mendoza Cross DO PCP - General 09/07/17 Mendoza Cross DO Historical LMR Provider 06/19/17 Valentina Escalona MD [address] [place] [address] Historical LMR Provider 06/19/17 09/11/21 Dena Che NP [address] [place] [address] [email or web address] Historical LMR Provider 06/19/17 2 Karrie Umaña NP [address] [place] [address] Historical LMR Provider 06/19/17 2 documented as of this encounter Additional Source Comments The information contained in this document represents components of the legal health record. It is not the complete legal health record.[facility]
--- OUTSIDE RECORDS SUMMARY | 2025-05-07 07:37 | XMS_ITS | Patient Health Record ---
Author Organization [facility] Address [address] [facility] [address] [place] [phone] Care Team Providers Care Disposal Worker Name Role Phone RU FRANKEL Primary Care Provider RILEY Capps Unavailable [phone] Allergies Allergen (clinical drug ingredient) Drug/Non Drug Allergy documented on EMR Reaction Allergy Type Onset Date Status erythromycin Erythromycin hives Drug Allergy A ctive Reason For Referral No Information Medications Medication SIG (Take, Route, Frequency, Duration) Notes Start Date End Date Status Omeprazole 10 MG 1 capsule 1/2 to 1 hour before morning meal Orally Once a day Active Vitamin B12 100 MCG as directed Orally INJECTIONS MONTHLY Active Social History Tobacco Use: Social History Observation Description Date Details (start date - stop date) Never Smoker NA - NA Sexual History Question Answer Notes Had sex in the past 12 months (vaginal, oral, or anal)? No Have you ever had a Sexually transmitted disease ? No Tobacco use other than smoking: Question Answer Notes Are you an other tobacco user? No AUDIT-C (Standard) Question Answer Notes Did you have a drink contain ing alcohol in the past year? Yes How often did you have six o r more drinks on one occasion in the past year? Never (0 point) How many drinks did you have on a typical day when you were drinking in the past year? 1 or 2 drinks (0 point) How often did you have a dri nk containing alcohol in the past year? Monthly or less (1 point) Points 1 Interpretation Negative Tobacco Control (Standard) Question Answer Notes Tobacco use: Nonsmoker Problems Problem Type SNOMED Code ICD Code Onset Dates Problem Status W/U Status Risk Notes Problem Gastro-esophageal reflux disease without esophagitis (502075213) Gastro-esophageal reflux disease without esophagitis (K21.9) Active confirmed Problem Gastric ulcer, unspecified as acute or chronic, without hemorrhage or perforation (K25.9) Active confirmed Problem Gastroparesis (033378276) Gastroparesis (K31.84) Active confirmed Problem Liver disease (498703873) Liver disease, unspecified (K76.9) Active confirmed Vital Signs Temperature 97.3 degrees Fahrenheit 07/08/2024 Blood pressure diastolic 62 mm Hg 07/08/2024 Height 65 in 07/08/2024 Blood pressure systolic 108 mm Hg 07/08/2024 Weight 155 lbs 07/08/2024 BMI 25.79 kg/m2 07/08/2024 Encounters Encounter Location Date Provider Diagnosis [address] [place] [address] 07/08/2024 RILEY GUERINS Encounter for gynecological examination (general) (routine) without abnormal findings Z01.419 ; Encounter for screening mammogram for malignant neoplasm of breast Z12.31 and Abdominal distension (gaseous) R14.0 Assessments Encounter Date Diagnosis (ICD Code) Assessment Notes Treatment Notes Treatment Clinical Notes Section Notes 07/08/2024 Encounter for gynecological examination (general) (routine) without abnormal findings (ICD-10 - Z01.419) During the visit, the following areas of concern were addressed: Discussed cervical cancer screening with either cytology alone every 3 years or high risk HPV co-testing every 5 years as per ASCCP guidelines. Advised continued annual pelvic exams. Patient encouraged to increase her level of exercise. SBE technique encouraged/tau ght. Patient reminded when annual mammogram is due. Patient encouraged to keep colon screening up to date. 07/08/2024 Encounter for screening mammogram for malignant neoplasm of breast (ICD-10 - Z12.31) 07/08/2024 Abdominal distension (gaseous) (ICD-10 - R14.0) Offered ultrasound due to mother's history of ovarian cancer - she declines. She reports she's had u/s at her previous provider's office and they couldn't see her ovaries. I advised that if her bloating symptoms worsen, or she changes her mind about the ultrasound to just call. She has gastroparesis, so a good reason to have bloating. Plan Of Treatment Pending Test Test Name Order Date MM Digital Screening Mammogram 3D 2023 Next Appt Details Provider Name:RILEY Echols, 07/14/2025 08:00:00 AM, [address], [address], [place], [address], Provider Name:RILEY Echols, 08/08/2025 08:30:00 AM, [address], [address], [place], [address], Insurance Providers Payer Name Payer Address Payer Phone Subscriber Number Group Number Insured Name Patient Relationship to Insured Coverage Start Date Coverage End Date [facility] [address] [place] [address] [id number] DEAN HAMILTON Self - patient is the insured 3 Medical (General) History Medical History History ICD Code Liver disease, unspecified K76.9 Gastroparesis K31.84 Gastro-esophageal reflux disease without esophagitis K21.9 Surgical History Surgery Date(Month/Year) Laparoscopic Cholecystectomy (in her ear ly 30's)
--- OUTSIDE RECORDS SUMMARY | 2025-05-07 07:37 | XMS_ITS | Encounter Summary ---
Author Organization [facility] Address [address] [facility] [address] [place] [address] Phone Care Team Providers Care Residential Air Sealing Technician Name Role Phone Mendoza Cross DO Unavailable Valentina Escalona MD Unavailable [phone] Dena Che INORGANIC CHEMISTRY PROFESSOR Unavailable [phone] ColumbiaKarrie jaffe INORGANIC CHEMISTRY PROFESSOR Unavailable [phone] Mendoza Cross DO Primary Care Provider [phone] Reason for Referral * Outpatient Procedure - Closed Specialty Diagnoses / Procedures Referred By Diego mckeon Referred To Contact Radiology Diagnoses Early satiety Bloating Procedures NM Gastric Emptying Reno Stevens MD Phone: tel: fax: [email or web address] Referral ID Status Reason Start Date Expiration Date Visits Re quested Visits Authorized [id number] Closed 09/26/2017 09/26/2018 1 1 Encounter Details Date Type Department Care Team (Late st Contact Info) Description 09/26/2017 Ancillary Orders Virtual Department [address] [place] [address] Reno Stevens MD [address] [place] [address] Early satiety; Bloating Social History Tobacco Use Types Packs/Day Years Used Date Smoking Tobacco: Never Smokeless Tobacco: Never Alcohol Use Standard Drinks/Week Comments Yes 0 (1 standard drink = 0.6 oz pur e alcohol) rare Comments Unknown Sex and Gender Information Value Date Recorded Sex Assigned at Female 09/18/2018 2:45 PM EST Legal Sex Female 9:39 PM EDT Gender Identity Female 09/18/2018 2:45 PM EST Sexual Orientation Straight 09/18/2018 2: 45 PM EST documented as of this encounter Plan of Treatment Not on file documented as of this encounter Results * NM GASTRIC EMPTYING SOLID PHASE (09/29/2017 1:53 PM EST) Anatomical Region Laterality Modality Abdomen, Pelvis Nuclear Medicine 09/29/2017 2:24 PM EST Impressions 09/29/2017 2:25 PM EST Prolonged gastric emptying evident at all 3 points assessed consistent with gastroparesis. S/S: Early satiety, bloating, gastroparesis POS - [id number] Narrative 09/29/2017 2:25 PM EST The patient is given an oral meal of 0.915 mCi of Tc99m labeled sulfur colloid with egg whites, toast, jam and water. Evaluation of gastric emptying over four hours is obtained. At one hour there is 97.9% residual activity in the stomach which is above the normal range. At two hours there is 88.8% residual activity in the stomach which is above the normal range. At four hours there is 54.2% residual activity in the stomach which is above the normal range. No obvious gastroesophageal reflux is seen. NORMAL RANGE One hour 37-90% Two hours 30-60% Four hours 0-10% Procedure Note Elder Lawrence MD - 09/29/2017 The patient is given an oral meal of 0.915 mCi of Tc99m labeled sulfurcolloid with egg whites, toast, jam and water. Evaluation of gastricemptying over four hours is obtained. At one hour there is 97.9% residual activity in the stomach which is abovethe normal range. At two hours there is 88.8% residual activity in the stomach which isabove the normal range. At four hours there is 54.2% residual activity in the stomach which isabove the normal range. No obvious gastroesophageal reflux is seen. NORMAL RANGE One hour 37-90% Two hours 30-60% Four hours 0-10% IMPRESSION: Prolonged gastric emptying evident at all 3 points assessed consistentwith gastroparesis. S/S: Early satiety, bloating, gastroparesis POS - [id number] Reno Stevens MD IMG NM ABDOMEN Final Resu lt documented in this encounter Visit Diagnoses Diagnosis Early satiety Bloating Flatulence, eructation, and gas pain Early satiety Bloating Flatulence, eructation, and gas pain documented in this encounter Additional Health Concerns Infection Onset Date Last Indicated Resolved Time CoV-Risk 12/30/2021 12/30/2021 12/31/2021 11:5 8 AM EDT COVID-19 12/30/2021 12/30/2021 01/20/2022 1:22 AM EDT documented as of this encounter Care Teams Residential Air Sealing Technician Relationship Specialty Start Date End Date Mendoza Cross DO PCP - General 09/07/17 Mendoza Cross DO Historical LMR Provider 06/19/17 Valentina Escalona MD [address] [address] Historical LMR Provider 06/19/17 09/11/21 Dena Che NP [address] [place] [address] [email or web address] Historical LMR Provider 06/19/17 2 Karrie Umaña NP [address] [place] [address] Historical LMR Provider 06/19/17 2 documented as of this encounter Additional Source Comments The information contained in this document represents components of the legal health record. It is not the complete legal health record.[facility]
--- OUTSIDE RECORDS SUMMARY | 2025-05-07 07:37 | XMS_ITS | Encounter Summary ---
Author Organization [facility] Address [address] [facility] [address] [place] [address] Phone Care Team Providers Care Data Abstractor Name Role Phone Mendoza Cross DO Unavailable Valentina Escalona MD Unavailable Dena Che WRAPPING MACHINE TENDER Unavailable [phone] OrfordKarrie jaffe WRAPPING MACHINE TENDER Unavailable Mendoza Cross DO Primary Care Provider [phone] Encounter Details Date Type Department Care Team (Late st Contact Info) Description 09/18/2017 Procedure Pass [facility] Endoscopy Admitting Dept Virtual Department [address] [place] [address] Social History Tobacco Use Types Packs/Day Years [...] documented as of this encounter Care Teams Data Abstractor Relationship Specialty Start Date End Date Huangphong Mendoza HernandezDO PCP - General 09/07/17 Mendoza Cross DO Historical LMR Provider 06/19/17 Valentina Escalona MD [address] [address] Historical LMR Provider 06/19/17 09/11/21 Dena Che NP [address] [place] [address] [email or web address] Historical LMR Provider 06/19/17 2 Karrie Umaña NP [address] [place] [address] Historical LMR Provider 06/19/17 2 documented as of this encounter Additional Source Comments The information contained in this document represents components of the legal health record. It is not the complete legal health record.[facility]
--- OUTSIDE RECORDS SUMMARY | 2025-05-07 07:37 | XMS_ITS | Encounter Summary ---
Author Organization [facility] Address [address] [facility] [address] [place] [address] Phone Care Team Providers Care Automation Machine Builder Name Role Phone Mendoza Cross DO Unavailable Valentina Escalona MD Unavailable Dena Che CHICKEN AND FISH CLEANER Unavailable WindsorKarrie jaffe CHICKEN AND FISH CLEANER Unavailable Mendoza Cross DO Primary Care Provider Encounter Details Date Type Department Care Team (Late st Contact Info) Description 10/26/2020 Transcribe Orders Virtual Department [address] [place] [address] Mendoza Cross DO [address] [facility] [place] [address] Acute recurrent sinusitis, unspecified location (Primary Dx) Social History Tobacco Use [...] as of this encounter Visit Diagnoses Diagnosis Acute recurrent sinusitis, unspecified location- Primary documented in this encounter Additional Health Concerns Infection Onset Date Last Indicated Resolved Time CoV-Risk 12/30/2021 12/30/2021 12/31/2021 11:5 8 AM EDT COVID-19 12/30/2021 12/30/2021 01/20/2022 1:22 AM EDT documented as of this encounter Care Teams Automation Machine Builder Relationship Specialty Start Date End Date Mendoza Cross DO PCP - General 09/07/17 Mendoza Cross DO Historical LMR Provider 06/19/17 Valentina Escalona MD [address] [address] Historical LMR Provider 06/19/17 09/11/21 Dena Che NP [address] [place] [address] [email or web address] Historical LMR Provider 06/19/17 2 Karrie Umaña NP [address] [place] [address] Historical LMR Provider 06/19/17 2 documented as of this encounter Additional Source Comments The information contained in this document represents components of the legal health record. It is not the complete legal health record.[facility]
--- OUTSIDE RECORDS SUMMARY | 2025-05-07 07:38 | XMS_ITS | Encounter Summary ---
Author Organization [facility] Address [address] [facility] [address] [place] [address] Phone Care Team Providers Care Coding Compliance Manager Name Role Phone Mendoza Cross DO Unavailable Valentina Escalona MD Unavailable Dena Che AIRCRAFT STRUCTURAL FITTER Unavailable CharlestonKarrie jaffe AIRCRAFT STRUCTURAL FITTER Unavailable Mendoza Cross DO Primary Care Provider [phone] Encounter Details Date Type Department Care Team (Late st Contact Info) Description 04/18/2018 Procedure Pass [facility] Endoscopy Admitting Dept Virtual Department 30 [place] [address] Social History Tobacco Use Types Packs/Day Years Used Date Smoking Tobacco: Never Smokeless Tobacco: Never Alcohol Use Standard Drinks/Week Comments Yes 1 (1 standard drink = 0.6 oz pur e alcohol) Comments Unknown Sex and Gender Information Value [...] documented as of this encounter Care Teams Coding Compliance Manager Relationship Specialty Start Date End Date Huangphong Mendoza HernandezDO PCP - General 09/07/17 Mendoza Cross DO Historical LMR Provider 06/19/17 Valentina Escalona MD [address] [address] Historical LMR Provider 06/19/17 09/11/21 Dena Che NP 21 [place] [address] [email or web address] Historical LMR Provider 06/19/17 2 Karrie Umaña NP [address] [place] [address] Historical LMR Provider 06/19/17 2 documented as of this encounter Additional Source Comments The information contained in this document represents components of the legal health record. It is not the complete legal health record.[facility]
--- OUTSIDE RECORDS SUMMARY | 2025-05-07 07:38 | XMS_ITS | Encounter Summary ---
Author Organization [facility] Address [address] [place] [address] [place] [address] Phone Care Team Providers Care Secondary English Teacher Name Role Phone Huangphong Mendoza Hernandez DO Unavailable Valentina Escalona MD Unavailable Dena Che CARDIOLOGY MANAGER Unavailable ChasidyKarrie jaffe CARDIOLOGY MANAGER Unavailable Mendoza Cross DO Primary Care Provider [phone] Encounter Details Date Type Department Care Team (Latest Contact Info) Description 04/08/2019 Transcribe Orders Virtual Department 30 [place] [address] Lashaun Bradley PA-C [address] [place] [address] Left ankle pain, unspecified chronicity (Primary Dx); Right ankle pain, unspecified chronicity; Left wrist pain; Right wrist pain; Cough Social History Tobacco Use Types Packs/Day Years [...] documented as of this encounter Results * XR WRIST 3 OR MORE VIEWS (RIGHT) (04/08/2019 11:35 AM EDT) Anatomical Region Laterality Modality Wrist Right Radiographic Kathia ging 04/08/2019 11:3 0 AM EDT Impressions 04/08/2019 11:39 AM EDT Osteopenia. No evidence of arthritis. POS - [id number] Narrative 04/08/2019 11:39 AM EDT HISTORY: As above. COMPARISON: None. RIGHT WRIST RADIOGRAPH FINDINGS: Three views obtained. Mild diffuse osteopenia. No fracture or malalignment. Joint spaces are maintained. No bone lesions. No soft tissue swelling. Procedure Note Adenike Alvarez MD - 04/08/2019 HISTORY: As above. COMPARISON: None. RIGHT WRIST RADIOGRAPH FINDINGS: Three views obtained. Mild diffuse osteopenia. No fracture ormalalignment. Joint spaces are maintained. No bone lesions. No softtissue swelling. IMPRESSION: Osteopenia. No evidence of arthritis. POS - [id number] Lashaun Kirk JIMENEZ IMG XR UPPER EXTREMITY Final Result * XR WRIST 3 OR MORE VIEWS (LEFT) (04/08/2019 11:34 AM EDT) Anatomical Region Laterality Modality Wrist Left Radiographic Kathia ging 04/08/2019 11:3 1 AM EDT Impressions 04/08/2019 11:38 AM EDT Osteopenia. No evidence of arthritis. POS - [id number] Narrative 04/08/2019 11:38 AM EDT HISTORY: As above. COMPARISON: None. LEFT WRIST RADIOGRAPH FINDINGS: Three views obtained. Diffuse osteopenia. No fracture or malalignment. Joint spaces are maintained. No bone lesions. No soft tissue swelling. Procedure Note dAenike Alvarez MD - 04/08/2019 HISTORY: As above. COMPARISON: None. LEFT WRIST RADIOGRAPH FINDINGS: Three views obtained. Diffuse osteopenia. No fracture or malalignment.Joint spaces are maintained. No bone lesions. No soft tissue swelling. IMPRESSION: Osteopenia. No evidence of arthritis. POS - [id number] December [facility] PA-C IMG XR UPPER EXTREMITY Final Result * XR CHEST PA AND LATERAL 2 VIEWS (04/08/2019 11:34 AM EDT) Anatomical Region Laterality Modality Chest Radiographic Kathia ging 04/08/2019 11:2 8 AM EDT Impressions 04/08/2019 11:37 AM EDT No acute chest disease. POS - [id number] Narrative 04/08/2019 11:37 AM EDT HISTORY: As above. COMPARISON: None. CHEST RADIOGRAPH FINDINGS: Views: 2. Lines/Tubes: None. Heart and Mediastinum: Normal. Lungs: Lungs are clear. Bones: Within normal limits. Soft Tissues: No acute findings. Right upper quadrant cholecystectomy clips. Procedure Note Adenike Alvarez MD - 04/08/2019 HISTORY: As above. COMPARISON: None. CHEST RADIOGRAPH FINDINGS: Views: 2. Lines/Tubes: None. Heart and Mediastinum: Normal. Lungs: Lungs are clear. Bones: Within normal limits. Soft Tissues: No acute findings. Right upper quadrant cholecystectomyclips. IMPRESSION: No acute chest disease. POS - [email or web address] Decemberanger PA-C IMG XR CHEST Final Result * XR ANKLE 3 OR MORE VIEWS (RIGHT) (04/08/2019 11:33 AM EDT) Anatomical Region Laterality Modality Ankle Right Radiographic Kathia ging 04/08/2019 11:2 9 AM EDT Impressions 04/08/2019 11:35 AM EDT No findings to account for the patient's pain. POS - [email or web address] Narrative 04/08/2019 11:35 AM EDT HISTORY: As above. COMPARISON: None. RIGHT ANKLE RADIOGRAPH FINDINGS: Four views obtained. There is no acute fracture or malalignment. Joint spaces are maintained. No suspicious lytic or blastic bone lesions. No acute soft tissue findings. Procedure Note Adenike Alvarez MD - 04/08/2019 HISTORY: As above. COMPARISON: None. RIGHT ANKLE RADIOGRAPH FINDINGS: Four views obtained. There is no acute fracture or malalignment. Jointspaces are maintained. No suspicious lytic or blastic bone lesions. Noacute soft tissue findings. IMPRESSION: No findings to account for the patient's pain. POS - [id number] December Kirk JIMENEZ IMG XR LOWER EXTREMITY Final Result * XR ANKLE 3 OR MORE VIEWS (LEFT) (04/08/2019 11:32 AM EDT) Anatomical Region Laterality Modality Ankle Left Radiographic Kathia ging 04/08/2019 11:3 0 AM EDT Impressions 04/08/2019 11:34 AM EDT No findings to account for the patient's pain. POS - [email or web address] Narrative 04/08/2019 11:34 AM EDT HISTORY: As above. COMPARISON: None. LEFT ANKLE RADIOGRAPH FINDINGS: Three views obtained. There is no acute fracture or malalignment. Joint spaces are maintained. No suspicious lytic or blastic bone lesions. No acute soft tissue findings. Procedure Note Adenike Alvarez MD - 04/08/2019 HISTORY: As above. COMPARISON: None. LEFT ANKLE RADIOGRAPH FINDINGS: Three views obtained. There is no acute fracture or malalignment. Jointspaces are maintained. No suspicious lytic or blastic bone lesions. Noacute soft tissue findings. IMPRESSION: No findings to account for the patient's pain. POS - [email or web address] Lashaun Bradley BARBARA IMG XR LOWER EXTREMITY Final Result documented in this encounter Visit Diagnoses Diagnosis Left ankle pain, unspecified chronicity- Primary Right ankle pain, unspecified chronicity Left wrist pain Pain in joint, forearm Right wrist pain Pain in joint, forearm Cough Left ankle pain, unspecified chronicity Right ankle pain, unspecified chronicity Cough Left wrist pain Pain in joint, forearm Right wrist pain Pain in joint, forearm documented in this encounter Additional Health Concerns Infection Onset Date Last Indicated Resolved Time CoV-Risk 12/30/2021 12/30/2021 12/31/2021 11:5 8 AM EDT COVID-19 12/30/2021 12/30/2021 01/20/2022 1:22 AM EDT documented as of this encounter Care Teams Secondary English Teacher Relationship Specialty Start Date End Date Mendoza Cross DO PCP - General 09/07/17 Mendoza Cross DO Historical LMR Provider 06/19/17 Valentina Escalona MD [address] [place] [address] Historical LMR Provider 06/19/17 09/11/21 Dena Che NP [address] [place] [address] [email or web address] Historical LMR Provider 06/19/17 2 Karrie Umaña NP [address] [place] [address] Historical LMR Provider 06/19/17 2 documented as of this encounter Additional Source Comments The information contained in this document represents components of the legal health record. It is not the complete legal health record.[facility]
--- OUTSIDE RECORDS SUMMARY | 2025-05-07 07:38 | XMS_ITS | Encounter Summary ---
Author Organization [facility] Address [address] [facility] [address] [place] [address] Phone Care Team Providers Care Client Advocate Name Role Phone Mendoza Cross DO Unavailable HuangMendoza darling Primary Care Provider [phone] Reason for Referral * Outpatient Procedure - Closed Specialty Diagnoses / Procedures Referred By Diego mckeon Referred To Contact Radiology Diagnoses Gastroparesis Procedures NM Gastric Emptying Reno Stevens MD Phone: tel: fax: [email or web address] Referral ID Status Reason Start Date Expiration Date Visits Re quested Visits Authorized [id number] Closed 02/24/2023 1 1 Encounter Details Date Type Department Care Team (Latest Contact Info) Description 02/24/2023 Transcribe Orders Virtual Department 30 [place] [address] Reno Stevens MD [address] [place] [address] [email or web address] Gastroparesis (Primary Dx) Social History Tobacco Use Types Packs/Day Years Used Date Smoking Tobacco: Never Smokeless Tobacco: Never Alcohol Use Standard Drinks/Week Comments Yes 1 (1 standard drink = 0.6 oz pur e alcohol) Education Answer Date Recorded Are you interested in more education? Not on adal e 12/30/2022 Are you concerned about learning? Not on file 12/30/2022 No 12/30/2022 No 12/30/2022 Digital Access Answer Date Recorded No 01/28/2023 No 01/28/2023 Reliable internet access at home? Not on file 01/28/2023 Device with a working camera? Not on file Comments No Sex and Gender Information Value Date Recorded Sex Assigned at Female 09/18/2018 2:45 PM EST Legal Sex Female 9:39 PM EDT Gender Identity Female 09/18/2018 2:45 PM EST Sexual Orientation Straight 09/18/2018 2: 45 PM EST documented as of this encounter Plan of Treatment Not on file documented as of this encounter Results * NM GASTRIC EMPTYING SOLID PHASE (04/24/2023 1:40 PM EDT) Anatomical Region Laterality Modality Abdomen, Pelvis Nuclear Medicine 04/25/2023 11:2 4 AM EDT Impressions 04/25/2023 11:44 AM EDT Moderate improvement in gastric emptying since 2018 observed. Persistent mild to moderate disordered gastric emptying. Narrative 04/25/2023 11:44 AM EDT NM GASTRIC EMPTYING SOLID PHASE HISTORY: Follow-up gastric dysmotility. Radionuclide gastric emptying scan: COMPARISON: Gastric emptying study 09/29/2017. TECHNIQUE: 1.0 mCi technetium 99m sulphur colloid was given orally as a standard solid phase meal. Intermittent upright imaging of the abdomen was performed immediately, and at 1, 2, and 4 hours. All of the standardized meal was consumed. FINDINGS: Gastric emptying is 13.4 % at 1 hour, 28.2 % at 2 hours and and 75.5 % at 4 hours. Previously gastric emptying was 2.1%, 11.2% and 45.8%. Apparent at least modest improvement in gastric emptying. According to accepted international standards using this technique, median normal values for emptying are: 31% at 1hr, 76% at 2hrs, and 99% at 4 hours. 5th percentile values for emptying are: 10% at 1 hr, 40% at 2hrs, and 90% at 4 hours. Procedure Note Parekr Strong MD - 04/25/2023 NM GASTRIC EMPTYING SOLID PHASE HISTORY: Follow-up gastric dysmotility. Radionuclide gastric emptying scan: COMPARISON: Gastric emptying study 09/29/2017. TECHNIQUE: 1.0 mCi technetium 99m sulphur colloid was given orally as a standardsolid phase meal. Intermittent upright imaging of the abdomen wasperformed immediately, and at 1, 2, and 4 hours. All of the standardizedmeal was consumed. FINDINGS: Gastric emptying is 13.4 % at 1 hour, 28.2 % at 2 hours and and 75.5 % at4 hours. Previously gastric emptying was 2.1%, 11.2% and 45.8%. Apparentat least modest improvement in gastric emptying. According to accepted international standards using this technique, mediannormal values for emptying are: 31% at 1hr, 76% at 2hrs, and 99% at 4 hours. 5th percentile values for emptying are: 10% at 1 hr, 40% at 2hrs, and 90% at 4 hours. IMPRESSION: Moderate improvement in gastric emptying since 2018 observed. Persistentmild to moderate disordered gastric emptying. Reno Stevens MD IMG NM ABDOMEN Final Resu lt documented in this encounter Visit Diagnoses Diagnosis Gastroparesis- Primary Gastroparesis documented in this encounter Care Teams Client Advocate Relationship Specialty Start Date End Date Mendoza Cross DO PCP - General 09/07/17 Mendoza Cross DO Historical LMR Provider 06/19/17 documented as of this encounter Additional Source Comments The information contained in this document represents components of the legal health record. It is not the complete legal health record.[facility]
--- OUTSIDE RECORDS SUMMARY | 2025-05-07 07:38 | XMS_ITS | Encounter Summary ---
Author Organization [facility] Address [address] [place] [address] [place] [address] Phone Care Team Providers Care Bass Fisher Name Role Phone America Mendoza Hernandez DO Unavailable Mendoza Cross DO Primary Care Provider [phone] Encounter Details Date Type Department Care Team (Latest Contact Info) Description 07/04/2022 Transcribe Orders Virtual Department 30 [place] [address] Komal Troy NP 10 [place] [address] Gastroparesis (Primary Dx) Social History Tobacco Use [...] as of this encounter Visit Diagnoses Diagnosis Gastroparesis- Primary documented in this encounter Care Teams Bass Fisher Relationship Specialty Start Date End Date Mendoza Cross DO PCP - General 09/07/17 Mendoza Cross DO [email or web address] Historical LMR Provider 06/19/17 documented as of this encounter Additional Source Comments The information contained in this document represents components of the legal health record. It is not the complete legal health record.[facility]
--- OUTSIDE RECORDS SUMMARY | 2025-05-07 07:38 | XMS_ITS | Encounter Summary ---
Author Organization [facility] Address [address] [facility] [address] [place] [address] Phone Care Team Providers Care Die Cut Operator Name Role Phone Huangphong Mendoza Hernandez DO Unavailable Valentina Escalona MD Unavailable Dena Che PLASTERER MAINTENANCE Unavailable [phone] ChasidyKarrie jaffe PLASTERER MAINTENANCE Unavailable Mendoza Cross DO Primary Care Provider [phone] Encounter Details Date Type Department Care Team (Latest Contact Info) Description 02/06/2018 Transcribe Orders [facility] [address] 2nd [place] [address] Reno Stevens MD 10 [facility] 2 [place] [address] Bloating (Primary Dx) Social History Tobacco Use Types [...] documented as of this encounter Results * Comprehensive metabolic panel (02/06/2018 8:57 AM EDT) SODIUM 141 133 - 146 mmol/L [facility] POTASSIUM 4.1 3.3 - 5.1 mmol/L [facility] CHLORIDE 105 96 - 108 mmol/L [facility] CO2 28 21 - 35 mmol/L [facility] BUN 14 6 - 19 mg/dL [facility] CREATININE 0.60 0.5 - 1.5 mg/dL [facility] GLUCOSE 99 70 - 99 mg/dL [facility] ALBUMIN 3.9 3.9 - 4.8 g/dL [facility] TOTAL PROTEIN 6.9 6.5 - 8.0 g/dL [facility] CALCIUM 8.7 8.4 - 10.3 mg/dL [facility] ALKALINE PHOSPHATASE 77 39 - 117 U/L [facility] TOTAL BILIRUBIN 0.5 0.0 - 1.2 mg/dL [facility] AST 18 0 - 37 U/L [facility] ALT 18 0 - 40 U/L [facility] GLOBULIN 3.0 1 - 4.8 g/dL [facility] EGFR 106 >59 mL/min/1.7 3m2 [facility] Comment:If patient is black, multiply result by 1.159. The eGFR calculation has changed from the MDRD equation to the CKD-EPI equation as of November 07, 2017. ANION GAP 12 10 - 20 mmol/L [facility] Blood 02/06/2018 8:57 AM EDT 02/06/2018 9:00 AM EDT us Reno Stevens MD LAB BLOOD ORDERABLES Final Result [facility] [address] [place] [address] * CBC (02/06/2018 8:57 AM EDT) WBC 6.33 3.40 - 11.20 K/uL [facility] RBC 4.26 3.80 - 4.80 M/uL [facility] HGB 13.2 12.0 - 15.0 g/dL [facility] HCT 39.6 36.0 - 46.0 % [facility] PLT 211 130 - 400 K/uL [facility] MCV 93.0 79.0 - 98.0 fL [facility] MCH 31.0 27.0 - 34.8 pg [facility] MCHC 33.3 31.5 - 36.0 g/dL [facility] RDW 12.2 10.8 - 14.6 % [facility] MPV 10.6 9.4 - 12.4 fl [facility] NRBC 0.00 /100 WBCs [facility] ABSOLUTE NRBC 0.00 K/uL [facility] Blood 02/06/2018 8:57 AM EDT 02/06/2018 9:00 AM EDT us Reno Stevens MD LAB BLOOD ORDERABLES Final Result Performing Organization Address City/State/[facility] Co de Phone Number [facility] [address] [place] [address] documented in this encounter Visit Diagnoses Diagnosis Bloating- Primary Flatulence, eructation, and gas pain documented in this encounter Additional Health Concerns Infection Onset Date Last Indicated Resolved Time CoV-Risk 12/30/2021 12/30/2021 12/31/2021 11:5 8 AM EDT COVID-19 12/30/2021 12/30/2021 01/20/2022 1:22 AM EDT documented as of this encounter Care Teams Die Cut Operator Relationship Specialty Start Date End Date Mendoza Cross DO PCP - General 09/07/17 Mendoza Cross DO Historical LMR Provider 06/19/17 Valentina Escalona MD [address] [place] [address], [address] [place] [address] Historical LMR Provider 06/19/17 09/11/21 Dena Che NP 21 [place] [address] [email or web address] Historical LMR Provider 06/19/17 2 Karrie Umaña NP [address] [place] [address] Historical LMR Provider 06/19/17 2 documented as of this encounter Additional Source Comments The information contained in this document represents components of the legal health record. It is not the complete legal health record.[facility]
--- OUTSIDE RECORDS SUMMARY | 2025-05-07 07:38 | XMS_ITS | Encounter Summary ---
Author Organization [facility] Address [address] [facility] [address] [place] [address] Phone Care Team Providers Care Naphthol Soaping Machine Operator Name Role Phone Mendoza Cross DO Unavailable Mendoza Cross DO Primary Care Provider [phone] Encounter Details Date Type Department Care Team (Latest Contact Info) Description 07/04/2022 Transcribe Orders [facility] [address] [address] Komal Troy NP 10 [place] [address] Gastroesophageal reflux disease, unspecified whether esophagitis present (Primary Dx) Social History Tobacco Use Types [...] documented as of this encounter Results * C-Reactive Protein (07/04/2022 9:13 AM EDT) C REACTIVE PROTEIN <3.0 0.0 - 4.0 mg/L [facility] Blood 07/04/2022 9:13 AM EDT 07/04/2022 9:17 AM EDT us Komal Troy NP LAB BLOOD ORDERABLES Yaneth l Result [address] [address] * (ABNORMAL) Comprehensive metabolic panel (07/04/2022 9:13 AM EDT) SODIUM 140 133 - 146 mmol/L [facility] POTASSIUM 4.5 3.3 - 5.1 mmol/L [facility] CHLORIDE 104 96 - 108 mmol/L [facility] CO2 28 21 - 35 mmol/L [facility] BUN 13 6 - 19 mg/dL [facility] CREATININE 0.70 0.5 - 1.5 mg/dL [facility] GLUCOSE 108(H) 70 - 99 mg/dL [facility] ALBUMIN 4.2 3.9 - 4.8 g/dL [facility] TOTAL PROTEIN 7.2 6.5 - 8.0 g/dL [facility] CALCIUM 9.8 8.4 - 10.3 mg/dL [facility] ALKALINE PHOSPHATASE 94 39 - 117 U/L [facility] TOTAL BILIRUBIN 0.4 0.0 - 1.2 mg/dL [facility] AST 28 0 - 37 U/L [facility] ALT 17 0 - 40 U/L [facility] GLOBULIN 3.0 1 - 4.8 g/dL [facility] EGFR 102 >59 mL/min/1.7 3m2 [facility] Comment:Estimated glomerular filtration rate calculated using the CKD-EPI refit equation. ANION GAP 13 10 - 20 mmol/L [facility] Blood 07/04/2022 9:13 AM EDT 07/04/2022 9:17 AM EDT Komal Troy NP LAB BLOOD ORDERABLES Yaneth l Result Performing Organization Address City/[facility]/ZIP Co de Phone Number [address] [address] * CBC (07/04/2022 9:13 AM EDT) WBC 5.88 4.00 - 11.00 K/uL [facility] RBC 4.64 3.72 - 5.30 M/uL [facility] HGB 14.2 10.6 - 15.5 g/dL [facility] HCT 42.1 32.0 - 45.0 % [facility] PLT 211 140 - 430 K/uL [facility] MCV 90.7 78.0 - 97.0 fL [facility] MCH 30.6 25.0 - 33.0 pg [facility] MCHC 33.7 32.0 - 36.0 g/dL [facility] RDW 12.4 11.0 - 16.0 % [facility] MPV 10.3 8.4 - 12.8 [facility] Blood 07/04/2022 9:13 AM EDT 07/04/2022 9:17 AM EDT [facility] NURSE INFORMATICS EDUCATOR LAB BLOOD ORDERABLES Yaneth l Result [address] [address] * Immunoglobulin A (07/04/2022 9:13 AM EDT) Pathologist [facility] IgA 252 70 - 400 mg/dL [facility] Blood 07/04/2022 9:13 AM EDT 07/04/2022 9:17 AM EDT [facility] Sammie Colladorileonard NURSE INFORMATICS EDUCATOR LAB BLOOD ORDERABLES Yaneth l Result [address] [address] * Tissue transglutaminase IgA (07/04/2022 9:13 AM EDT) TTG IGA ANTIBODY 2.2 <4.0 (Negative) U/mL [facility] Blood 07/04/2022 9:13 AM EDT 07/04/2022 9:17 AM EDT Komal Sammie Troy NP LAB BLOOD ORDERABLES Yaneth l Result [facility] [address] [place] [address] documented in this encounter Visit Diagnoses Diagnosis Gastroesophageal reflux disease, unspecified whether esophagitis present- Primary documented in this encounter Care Teams Naphthol Soaping Machine Operator Relationship Specialty Start Date End Date Mendoza Cross DO [email or web address] PCP - General 09/07/17 Mendoza Cross DO Historical LMR Provider 06/19/17 documented as of this encounter Additional Source Comments The information contained in this document represents components of the legal health record. It is not the complete legal health record.[facility]
--- OUTSIDE RECORDS SUMMARY | 2025-05-07 07:38 | XMS_ITS | Encounter Summary ---
Author Organization [facility] Address [address] [facility] [address] [place] [address] Phone Care Team Providers Care Panel Builder Name Role Phone Mendoza Cross DO Unavailable Mendoza Cross DO Primary Care Provider [phone] Encounter Details Date Type Department Care Team (Late st Contact Info) Description 07/20/2023 Procedure Pass [facility] Endoscopy Admitting Dept Virtual Department [address] [place] [address] Social History Tobacco Use Types Packs/Day Years [...] Diagnoses Not on filedocumented in this encounter Care Teams Panel Builder Relationship Specialty Start Date End Date Mendoza Cross DO PCP - General 09/07/17 Mendoza Cross DO Historical LMR Provider 06/19/17 documented as of this encounter Additional Source Comments The information contained in this document represents components of the legal health record. It is not the complete legal health record.[facility]
== END 2025-05-07 07:34 | disposition home or self-care (01) ==
LOC: HO.MAMMO 07:33
PROVIDERS: Visit Provider Internal Medicine
DX: Z12.31 Encounter for screening mammogram for malignant neoplasm of breast (principal)
CPT/HCPCS: 77063; 77067

== ENCOUNTER → 2025-05-07 07:45 | Outpatient (BNV) | payer OTHER, SELFPAY | PROVIDERS: Visit Provider Internal Medicine | DX: Z12.31 Encounter for screening mammogram for malignant neoplasm of breast (principal) | CPT/HCPCS: 77063; 77067 ==

== ENCOUNTER 2025-05-30 11:39 | Emergency (ER) | payer OTHER, SELFPAY ==
--- NOTE | ~2025-05-30 | CT_ITS ---
EXAMINATION: CT ABDOMEN AND PELVIS WITH CONTRAST CLINICAL INFORMATION: Right lower quadrant tenderness. COMPARISON: 10/21/2022, 11/15/2017. TECHNIQUE: Multidetector volumetric images were obtained from the superior aspect of the liver through the pubic symphysis following administration 85 mL of Omnipaque 350 intravenous contrast. Sagittal and coronal reformatted images were obtained on the technologist's workstation. Oral contrast: No This CT examination was performed using dose optimization techniques as appropriate, variously including the following: *Automated exposure control *Adjustment of mA and/or kV according to patient size (this includes techniques or standardized protocols for targeted exams where dose is matched to indication/reason for exam; i.e. extremities or head) *Use of iterative reconstruction technique FINDINGS: LUNG BASES: The imaged lung bases are clear. There are no effusions. The heart size is normal. There is a small paraesophageal hiatus hernia. LIVER, GALLBLADDER, AND BILIARY TREE: The liver is normal in size, shape, and attenuation. No focal hepatic lesion or pathologic biliary ductal dilatation is present. The gallbladder is surgically absent. PANCREAS: Unremarkable. SPLEEN: Unremarkable. ADRENAL GLANDS: Unremarkable. KIDNEYS AND URETERS: The kidneys are normal in size, shape, and attenuation. No hydronephrosis, hydroureter, or calculi seen. No perinephric stranding. BLADDER: Unremarkable. GASTROINTESTINAL TRACT: Normal appendix is visualized. Small bowel, and colon are normal in caliber, course, and appearance, without evidence of wall thickening or inflammation. There are a few scattered colonic diverticula. The rectum appears normal. Small to moderate sized paraesophageal hiatus hernia. Normal stomach and duodenum. ABDOMINAL WALL: No significant hernia is appreciated. LYMPH NODES: No abnormal lymphadenopathy is evident. VASCULAR: Unremarkable. PELVIC VISCERA: The uterus and adnexa are unremarkable. OSSEOUS STRUCTURES: No suspicious lytic or blastic bone lesions. Mild degenerative spinal changes are present. CT/CT abdomen pelvis w IV con IMPRESSION: 1. No acute findings in the abdomen or pelvis. 2. Ancillary findings as discussed. Electronically signed by: Daniel Barron MD 05/30/2025 04:40 PM EDT
--- NOTE | ~2025-05-30 | US_ITS ---
CLINICAL HISTORY: RLQ pain Ultrasound pelvis transabdominal and transvaginal. COMPARISON: CT abdomen and pelvis dated 05/30/25 at 16:18 EDT Technique: Real time sonographic imaging was performed by the safety technician. Multiple physician relations representative static images were saved for review. FINDINGS: Anteverted uterus appears normal and measures 5.6 x 1.5 x 2.3 cm. No uterine fibroids identified. Endometrium: 4 mm, normal. The right ovary was not seen. Normal appearance of the right adnexa without evidence of mass. The left ovary was not seen. Normal appearance of the left adnexa without evidence of mass. No free fluid identified in the pelvic cul-de-sac. IMPRESSION: 1. Ovaries were not identified bilaterally. 2. Normal appearance of the uterus. This document has been electronically signed by: Kwame Padgett MD on 05/30/2025 19:20:34
[2025-05-30 12:05] VITALS: BP 195/86; PULSE 71; RESP 16; TEMP 36.3; O2SAT 100; BMI 26.1
--- NOTE | 2025-05-30 12:05 | ED_ITS ---
HPI - General Adult General Chief complaint: Abdominal Pain Stated complaint: lower abd pain rad into back Time Seen by Provider: 05/30/25 14:42 Source: patient, RN notes reviewed and old records reviewed Mode of arrival: ambulatory Limitations: no limitations History of Present Illness ED Provider: Myrna HPI narrative: Patient is a 60-year-old female with history of cholecystectomy presenting to the emergency department with complaint of right lower quadrant pain since last night. Describes pain as stabbing, states that it waxes and wanes, currently rating it 6/10. Denies any vomiting or diarrhea, does report mild nausea. Denies fevers. Denies any dysuria, frequency, hematuria or other urinary symptoms. Denies Any vaginal bleeding or other abnormal discharge. Took Tylenol and ibuprofen at home with little relief. MD complaint: abdominal pain Related Data Previous Rx's ?Medication ?Instructions ?Recorded naproxen 500 mg tablet 500 mg PO BID #14 tabs 05/30 ondansetron 4 mg disintegrating 4 mg PO Q8H PRN nausea and 05/30/25 tablet vomiting #10 tabs oxycodone 5 mg tablet 5 mg PO Q8H PRN severe pain (scale 05/30/25 score 7-10) #6 tabs prednisone 20 mg tablet 20 mg PO DAILY #7 tabs 05/30 Allergies Allergy/AdvReac Type Severity Reaction Status Date / Time azithromycin Allergy Unknown hives Verified 05/30/25 12:07 erythromycin base Allergy Unknown HIVES Verified 05/30/25 12:07 (ERYTHROMYCIN BASE) Erythromycin Allergy Unknown Hives Uncoded 05/30/25 12:07 Review of Systems 2 Review of Systems: As per HPI Yes all other systems are reviewed and are negative Constitutional: Constitutional: Reports as per HPI [facility] Social History Social History Alcohol intake: current Alcohol intake frequency: holidays/special occasions only Smoked in Last 30 Days: No Use of substances other than those prescribed or required for medical reasons: No Advance Directives: No Advance Directives Information Provided: Yes Do you have a plan to hurt others: No Plan Physical Exam ED Vital Signs: Vital Signs - 24 hr 05/30/25 12:05 05/30/25 14:00 05/30/25 19:34 Temperature 97.4 F 97.4 F 98.5 F Pulse Rate 71 71 67 Respiratory Rate 16 16 16 Blood Pressure 195/86 H 195/86 H 140/81 H Pulse Oximetry 100 100 98 Oxygen Delivery Method Room Air Room Air Room Air BMI result Body Mass Index 26.1 Vital signs have been reviewed and appear to be correct. Blood pressure elevated. Heart rate normal. Respiratory rate normal. Temperature normal. Oxygen saturation normal. Const General: cooperative, healthy appearing and no acute distress Orientation/consciousness: oriented to person, oriented to place, oriented to time and patient oriented x3 Limitations: no limitations HENMT Head: Yes normocephalic and Yes atraumatic Ears: external ears normal General nose exam: Normal external nose present Face and sinus: Yes face symmetric Mouth: oropharynx normal and moist mucous membranes Throat: Yes uvula midline Eyes Pupils: Equal, round and reactive pupils present Neck Neck: Yes normal visual inspection and Yes supple Resp Effort & Inspection: normal respiratory effort and able to speak in complete sentences Auscultation: clear to auscultation bilaterally Cardio Rate: regular rate Rhythm: regular rhythm Heart sounds: S1 normal heart sound present and S2 normal heart sound present GI Palpation (GI): Soft to palpation, Tenderness to palpation present (GI) in the RLQ and Guarding due to palpation present (GI) in the RLQ Auscultation: normoactive bowel sounds General: Yes no CVA tenderness Back/Spine/Pelvis Back: no CVA tenderness Skin General skin exam: elasticity normal and turgor normal Neuro General: oriented to person, oriented to place, oriented to time, patient oriented x3, moves all extremities, no focal motor deficits and CN's II-XI intact bilaterally Cranial nerves: Yes Equal, round and reactive pupils present Cognition (Neuro): normal cognition Extrem General: Yes full ROM, Yes no pedal edema and Yes no calf tenderness Psych Mental Status: mental status grossly normal Affect: normal affect Thought process: Normal thought process present Course Course Course Narrative: RME, this is a rapid medical exam performed by Derek Guevara please refer to primary provider for complete H&P- 60-year-old female presents for evaluation of right lower abdominal pain. Symptoms started yesterday, no nausea vomiting, diarrhea. No urinary symptoms. The patient is status post cholecystectomy. Plan for labs, urinalysis, we will defer any potential imaging to primary ER provider Medications Administered Discontinued Medications Generic Name Dose Route Start Last Admin Trade Name Freq PRN Reason Stop Dose Admin Ketorolac Tromethamine 15 mg 05/30/25 17:07 05/30/25 17:37 Ketorolac Tromethamine 15 Mg/Ml Vial IVPUSH 05/30/25 17:08 15 mg ONCE ONE Administration Morphine Sulfate 4 mg 05/30/25 14:45 05/30/25 14:59 Morphine Sulfate 4 Mg/Ml Cartridge IVPUSH 05/30/25 14:46 4 mg ONCE ONE Administration Protocol Ondansetron HCl 4 mg 05/30/25 14:45 05/30/25 14:59 Ondansetron Hcl 4 Mg/2 Ml Vial IVPUSH 05/30/25 14:46 4 mg ONCE ONE Administration Medical Decision Making Medical Decision Making [facility] Narrative: Patient is a 60-year-old female with history of cholecystectomy presenting to the emergency department with complaint of right lower quadrant pain since last night. On exam patient is awake, A+Ox3, VS WNL, afebrile, normal neurological exam without focal deficits, physical exam findings as above. Given reported symptoms and physical exam findings, initial differential includes but is not limited to appendicitis, ureteral calculi, UTI/pyeloephritis, ovarian cyst. Labs unremarkable. No evidence of infection on UA. CT A/P without any acute abnormalities, no evidence of appendicitis. My interpretation is in agreement with the radiologist's interpretation. UA without evidence of infection. Patient states pain is increasing. Will order ultrasound for further evaluation. Pelvic/transvaginal ultrasound unable to visualize ovaries. Results discussed with patient, including that pain could be due to a recently passed kidney stone. 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 Return precautions discussed. Will discharge with zofran, prednisone, naproxen and a few oxycodone for severe pain. Patient verbalized understanding of and agreement with plan. Differential Diagnosis Differential Diagnoses: The differential diagnosis associated with the presentation includes as per [facility] Admission/Observation Consideration of admission/observation: Escalation of care including admission/observation considered Patient would have been admitted to the hospital and transferred to appropriate facility had their clinical presentation warranted hospital admission. Lab Data [facility] Lab Attestation statement: I reviewed the patient's lab results. as per [facility] 05/30/25 12:16 05/30/25 12:16 Labs: Lab Results 05/30/25 Range/Units 12:16 WBC 6.7 (4.8-10.8) X10*3/uL RBC 4.67 (4.20-5.50) X10*6/uL Hgb 14.5 (12.0-16.0) g/dl Hct 41.8 (37.0-47.0) % MCV 89.5 (80.0-98.0) fL MCH 31.0 (27.0-33.0) pg MCHC 34.7 (31.0-35.0) g/dl RDW 12.2 (11.0-16.0) % Plt Count 212 D (160-400) X10*3/uL MPV 9.9 (9.4-12.3) fL Immature Gran % (Auto) 0.3 (0.0-0.4) % Neut % (Auto) 52.4 (45-73) % Lymph % (Auto) 36.5 (20-40) % Clarke % (Auto) 7.7 (2-11) % Eos % (Auto) 2.6 (0-4) % Baso % (Auto) 0.5 (0-2) % Lymph # (Auto) 2.4 (1.2-4.9) X10*3/uL Clarke # (Auto) 0.5 (0.1-1.2) X10*3/uL Eos # (Auto) 0.2 (0.0-0.4) X10*3/uL Baso # (Auto) 0.0 (0.0-0.2) X10*3/uL Abs Immat Gran (auto) 0.02 (0.00-0.03) X10*3/uL Absolute Neuts (auto) 3.5 (2.0-8.3) x10*3/uL Absolute Nucleated RBC 0.000 (0.0-0.012) X10*3/uL Nucleated RBC % (auto) 0.0 (0.0-0.2) /100WBC Sodium 142 (135-145) mmol/L Potassium 4.2 (3.3-5.1) mmol/L Chloride 108 (96-108) mmol/L Carbon Dioxide 26 (22-29) mmol/L Anion Gap 12 (12-20) BUN 14 (9-16) mg/dL Creatinine 0.74 (0.5-1.4) mg/dL Estim Creat Clear Calc 81.9 Estimated GFR > 60 Random Glucose 95 (60-115) mg/dL Calcium 9.6 (8.4-10.2) mg/dL Total Bilirubin 0.6 (0.0-1.0) mg/dL AST 27 (5-31) U/L ALT 23 (0-31) U/L Alkaline Phosphatase 91 (39-117) U/L Total Protein 7.4 (6.5-8.0) g/dL Albumin 4.5 (3.5-5.0) g/dL Lipase 43 (8-78) U/L Urine Color Yellow Urine Appearance Clear Urine pH 7.0 (5.0-9.0) Ur Specific [place] 1.010 (1.005-1.025) Urine Protein Negative (Neg-Trace) mg/dL Urine Glucose (UA) Negative (Negative) mg/dL Urine Ketones Negative (Negative) mg/dL Urine Blood Negative (Negative) Urine Nitrite Negative (Negative) Ur Leukocyte Esterase Negative (Negative) Urine RBC 0-2 (0-2) /HPF Urine WBC 0-5 (0-5) /HPF Ur Squamous Epith Cells 0-2 (0-2) /HPF Urine Bacteria None Seen (None Seen) Hyaline Casts 0-2 (0-2) /LPF Independent Interpretation I performed an independent interpretation of an: Ultrasound and CT Scan Interpretation: CT A/P without any acute abnormalities, no evidence of appendicitis. Ovaries not able to be identified via U/S. Radiology Impression Discussion of test interpretation with radiology: I have reviewed the radiologist's reading. Radiologist Impression: CT/CT abdomen pelvis w IV con IMPRESSION: 1. No acute findings in the abdomen or pelvis. 2. Ancillary findings as discussed. No free fluid identified in the pelvic cul-de-sac. IMPRESSION: 1. Ovaries were not identified bilaterally. 2. Normal appearance of the uterus. External Record Review External record reviewed: Inpatient record, Office record and Outpatient record Prescription Management I considered prescription management with: Pain Medication and Other Discharge Plan Discharge Clinical Impression: Abdominal pain Patient Disposition: Home, Self-Care Instructions: Abdominal Pain (ED), Pelvic Pain (ED) Additional Instructions: You have been evaluated in the emergency department today for abdominal pain. Your evaluation did not show evidence of medical conditions requiring emergent intervention at this time. Your labs are reassuring and your urinalysis did not show evidence of infection. Imaging including CT of your abdomen and pelvis and ultrasound of your pelvis did not show any concerning findings. It is possible that you have recently passed a kidney stone, and you are having continued pain due to inflammation. You are being prescribed a short course of prednisone which is a steroid to decrease inflammation. You are also being prescribed naproxen to for pain and to decrease inflammation. Do not take this in combination with other NSAID's (ibuprofen, aspirin, etc.). You are being prescribed ondansetron for nausea. You are also being prescribed a few oxycodone for severe pain. Take all medications as prescribed. We recommend that you follow-up with your supervisor home restoration service and/or primary care provider for ongoing symptoms. Return to the emergency department if you experience worsening or uncontrolled pain, fevers 100.4? F or greater, recurrent vomiting, inability to tolerate food or fluids by mouth, bloody stools or vomit, black or tarry stools, or any other concerning symptoms. Prescriptions: New prednisone 20 mg tablet 20 mg PO DAILY Qty: 7 0RF ondansetron 4 mg tablet,disintegrating 4 mg PO Q8H PRN (Reason: nausea and vomiting) Qty: 10 0RF naproxen 500 mg tablet 500 mg PO BID Qty: 14 0RF oxycodone 5 mg tablet 5 mg PO Q8H PRN (Reason: severe pain (scale score 7-10)) Qty: 6 0RF Rx Instructions: Partial Fill upon patient request. Print Language: Kyrgyz
[2025-05-30 12:23] LABS: MANUAL DIFF FLAG NO
[2025-05-30 12:24] LABS: Hematocrit 41.8 % (37.0-47.0); Hemoglobin 14.5 g/dl (12.0-16.0); Imm Gran Abs Auto 0.02 X10*3/uL (0.00-0.03); Imm Gran Pct Auto 0.3 % (0.0-0.4); Lymphocytes Absolute Auto 2.4 X10*3/uL (1.2-4.9); Mean Corpuscular HGB Conc 34.7 g/dl (31.0-35.0); Mean Corpuscular Hemoglobin 31.0 pg (27.0-33.0); Mean Corpuscular Volume 89.5 fL (80.0-98.0); NRBC Abs Auto 0.000 X10*3/uL (0.0-0.012); NRBC Pct Auto 0.0 /100WBC (0.0-0.2); Platelet Count 212 X10*3/uL (160-400); Red Blood Count 4.67 X10*6/uL (4.20-5.50); White Blood Count 6.7 X10*3/uL (4.8-10.8)
[2025-05-30 12:26] LABS: Appearance Urine Clear; Glucose Urine UA Negative (Negative); PH 7.0 (5.0-9.0); Specific Gravity - Urine 1.010 (1.005-1.025)
[2025-05-30 12:39] LABS: Alanine Aminotransferase 23 U/L (0-31); Albumin Level 4.5 g/dL (3.5-5.0); Alkaline Phosphatase 91 U/L (39-117); Anion Gap 12 (12-20); Aspartate Amino Transferase 27 U/L (5-31); Blood Urea Nitrogen 14 mg/dL (9-16); Calcium 9.6 mg/dL (8.4-10.2); Carbon Dioxide 26 mmol/L (22-29); Chloride 108 mmol/L (96-108); Creatinine Clr Calc Pharmacy 81.9; Estimated Glomerular Filt Rate > 60; Lipase 43 U/L (8-78); Potassium 4.2 mmol/L (3.3-5.1); Sodium 142 mmol/L (135-145); Total Protein 7.4 g/dL (6.5-8.0)
[2025-05-30 14:00] VITALS: BP 195/86; PULSE 71; RESP 16; TEMP 36.3; O2SAT 100
--- OUTSIDE RECORDS SUMMARY | 2025-05-30 15:22 | XMS_ITS | Encounter Summary ---
Author Organization [facility] Address [address] [place] [address] [place] [address] Phone Care Team Providers Care Welder Railcar Mechanic Name Role Phone Huangphong Mendoza Hernandez DO Unavailable Valentina Escalona MD Unavailable Dena Che GLUE MAKER Unavailable ColumbiaKarrie jaffe GLUE MAKER Unavailable Mendoza Cross DO Primary Care Provider [phone] Encounter Details Date Type Department Care Team (Latest Contact Info) Description 04/08/2019 Transcribe Orders Virtual Department [address] [place] [address] Lashaun Bradley PA-C [address]. [address] [place] [address] Left ankle pain, unspecified chronicity (Primary Dx); [...] as of this encounter Plan of Treatment Upcoming Encounters Date Type Department Care Team (Late st Contact Info) Description 08/13/2025 8:15 AM EST Office Visit [facility] [address] [place] [address] Unknown, Unknown, Komal Asher, KORY [address] [place] [address] documented as of this encounter Results * [...] evidence of arthritis. POS - [email or web address] Lashaun Bradley PA-C IMG XR UPPER EXTREMITY Final Result [...] evidence of arthritis. POS - [email or web address] December PA-C IMG XR UPPER EXTREMITY Final Result [...] No acute chest disease. POS - [email or web address] December [facility] PA-C IMG XR CHEST Final Result * [...] patient's pain. POS - [email or web address] December Kirk PA-C IMG XR LOWER EXTREMITY Final Result * [...] patient's pain. POS - [email or web address] December Kirk CASTELANCarlos A IMG XR LOWER EXTREMITY Final Result documented [...] documented as of this encounter Care Teams Welder Railcar Mechanic Relationship Specialty Start Date End Date Mendoza Cross DO PCP - General 09/07/17 Mendoza Cross DO Historical LMR Provider 06/19/17 Valentina Escalona MD [address] [place] [address], [address] [place] [address] Historical LMR Provider 06/19/17 09/11/21 Dena Che NP [address] [place] [address] [email or web address] Historical LMR Provider 06/19/17 2 Karrie Umaña NP [address] [place] [address] Historical LMR Provider 06/19/17 2 documented as of this encounter Additional Source Comments The information contained in this document represents components of the legal health record. It is not the complete legal health record.[facility]
--- OUTSIDE RECORDS SUMMARY | 2025-05-30 15:22 | XMS_ITS | Encounter Summary ---
Author Organization [facility] Address [address] [facility] [address] [place] [address] Phone Care Team Providers Care Software Release Manager Name Role Phone Mendoza Cross DO Unavailable Valentina Escalona MD Unavailable [phone] Dena Che COSMETOLOGY INSTRUCTOR Unavailable [phone] [place] jaffe COSMETOLOGY INSTRUCTOR Unavailable [phone] Mendoza Cross DO Primary Care Provider [phone] Reason for Referral * Outpatient Procedure - Closed Specialty Diagnoses / Procedures Referred By Diego mckeon Referred To Contact Radiology Diagnoses Early satiety Bloating Procedures NM Gastric Emptying Reno Stevens MD Phone: tel: fax: [email or web address] Referral ID Status Reason Start Date Expiration Date Visits Re quested Visits Authorized [id number] Closed 09/26/2017 09/26/2018 1 1 Encounter Details Date Type Department Care Team (Late st Contact Info) Description 09/26/2017 Ancillary Orders Virtual Department [address] [place] [address] Reno Stevens MD [address] [place] [address] Early satiety; Bloating Social History Tobacco Use [...] Description 08/13/2025 8:15 AM EST Office Visit [facility] [address] [place] [address] Unknown, Unknown, Komal Asher NP [address] [place] [address] documented as of this encounter Results * [...] POS - [email or web address] Reno Stevens MD IMG WA ABDOMEN Final Resu lt documented in this encounter Visit Diagnoses Diagnosis Early satiety Bloating Flatulence, eructation, and gas pain Early satiety Bloating Flatulence, eructation, and gas pain documented in this encounter Additional Health Concerns Infection Onset Date Last Indicated Resolved Time CoV-Risk 12/30/2021 12/30/2021 12/31/2021 11:5 8 AM EDT COVID-19 12/30/2021 12/30/2021 01/20/2022 1:22 AM EDT documented as of this encounter Care Teams Software Release Manager Relationship Specialty Start Date End Date Mendoza Cross DO PCP - General 09/07/17 Mendoza Cross DO Historical LMR Provider 06/19/17 Valentian Escalona MD [address] [facility], [address]nd [place] [address] [email or web address] Historical LMR Provider 06/19/17 09/11/21 Dena Che NP [address] [place] [address] [email or web address] Historical LMR Provider 06/19/17 2 Karrie Umaña NP [address] [place] [id number] Historical LMR Provider 06/19/17 2 documented as of this encounter Additional Source Comments The information contained in this document represents components of the legal health record. It is not the complete legal health record.[facility]
--- OUTSIDE RECORDS SUMMARY | 2025-05-30 15:22 | XMS_ITS | Clinical Summary ---
Author Organization [facility] Address [address] [facility] [address] [place] [address] Phone Care Team Providers Care Data Administrator Name Role Phone Ru Frankel DO Unavailable HuangRu darling DO Primary Care Provider [phone] Allergies Active Allergy Reactions Criticality Noted Date [...] 07/18/2023 12:11 PM EST Plan of Treatment Upcoming Encounters Date Type Department Care Team (Late st Contact Info) Description 08/13/2025 8:15 AM EST Office Visit [facility] [address] [place] [address] Unknown, Unknown, Komal Asher NP [address] [place] [address] Health Maintenance Due Date Last Done Comments [...] 2017 INFLUENZA VACCINE (#1) 2025 COVID-19 VACCINE (4 - 2024-2 6 season) 2025 08/21/2021, 01/16/2021, 12/26/2020 SCREENING [...] Stevens MD - 07/20/2023 7:28 AM EST [facility] Patient Name: Chiquis Trey Attending MD:: DEBRA STEVENS MD, Procedure Date: 07/20/2023 7:28 AM Date of : 1965 Age: 58 Admit Type: Outpatient Gender: Female Room: [place] [address] Referring MD: RU FRANKEL DO Exam Type: [...] monitored continuously. The Olympus adult variable colonoscope [id number] #2 was introduced through the anus and [...] 7:28 AM Procedure Code(s): --- Professional --- 35207, Colonoscopy, flexible; diagnostic, including collection of specimen(s) by brushing or washing, when performed (separateprocedure) --- Technical --- 74676, Colonoscopy, flexible; diagnostic, including collection of specimen(s) by brushing or washing, when performed (separateprocedure) Diagnosis Code(s): --- Professional --- K64.9, Unspecified hemorrhoids R10.12, Left upper quadrant pain K57.30, Diverticulosis of large intestine without perforation or abscess without bleeding --- Technical --- K64.9, Unspecified hemorrhoids R10.12, Left upper quadrant pain K57.30, Diverticulosis of large intestine without perforation or abscess without bleeding CPT copyright 2021 [employer]. All rights reserved. The codes documented in this report are preliminary and upon wool tamper reviewmay be revised to meet current compliance requirements. Procedure Date: 07/20/2023 7:28:[address] [place] [id number] us Ru A Bigda DO GI PROCEDURE ORDERABLES Final Re sult * Outside LDL (09/08/2010) LDL - External 83 50 - 250 mg/ml us Historical Provider LAB BLOOD ORDERABLES Yaneth l Result from Last 3 Months or Most Recently Relevant to Health Maintenance Insurance O O O O O O O O O Care Teams Data Administrator Relationship Specialty Start Date End Date Ru Frankel DO [email or web address] PCP - General 09/07/17 Ru Frankel DO [email or web address] Historical LMR Provider 06/19/17 Additional Source Comments The information contained in this document represents components of the legal health record. It is not the complete legal health record.[facility]
--- OUTSIDE RECORDS SUMMARY | 2025-05-30 15:22 | XMS_ITS | Encounter Summary ---
Author Organization [facility] Address [address] [facility] [address] [place] [address] Phone Care Team Providers Care Slate Roofer Name Role Phone Mendoza Cross DO Unavailable Mendoza Cross DO Primary Care Provider [phone] Encounter Details Date Type Department Care Team (Late st Contact Info) Description 07/20/2023 Procedure Pass [facility] Endoscopy Admitting Dept Virtual Department [address] [place] [address] Social History Tobacco Use Types Packs/Day Years [...] Description 08/13/2025 8:15 AM EST Office Visit [facility] [address] [place] [address] Unknown, Unknown, Komal Asher, KORY [address] [place] [address] documented as of this encounter Visit Diagnoses Not on filedocumented in this encounter Care Teams Slate Roofer Relationship Specialty Start Date End Date Mendoza Cross DO PCP - General 09/07/17 Mendoza Cross DO Historical LMR Provider 06/19/17 documented as of this encounter Additional Source Comments The information contained in this document represents components of the legal health record. It is not the complete legal health record.[facility]
--- OUTSIDE RECORDS SUMMARY | 2025-05-30 15:22 | XMS_ITS | Encounter Summary ---
Author Organization [facility] Address [address] [place] [address] [place] [address] Phone Care Team Providers Care Power Generation Equipment Repairer Name Role Phone Mendoza Cross DO Unavailable Mendoza Cross DO Primary Care Provider Encounter Details Date Type Department Care Team (Latest Contact Info) Description 07/04/2022 Transcribe Orders [facility] [address] [address] Komal Troy NP 10 [place] [address] Gastroesophageal reflux disease, unspecified whether esophagitis present [...] Description 08/13/2025 8:15 AM EST Office Visit [facility] 10 [place] [address] Unknown, Unknown, Komal Asher NP [address] [place] [address] documented as of this encounter Results * C-Reactive Protein (07/04/2022 9:13 AM EDT) C REACTIVE PROTEIN <3.0 0.0 - 4.0 mg/L [facility] Blood 07/04/2022 9:13 AM EDT 07/04/2022 9:17 AM EDT us Komal Troy NP LAB BLOOD ORDERABLES Yaneth l Result [address] [address] * (ABNORMAL) Comprehensive metabolic panel (07/04/2022 9:13 AM EDT) SODIUM 140 133 - 146 mmol/L [facility] POTASSIUM 4.5 3.3 - 5.1 mmol/L [facility] CHLORIDE 104 96 - 108 mmol/L [facility] CO2 28 21 - 35 mmol/L [facility] BUN 13 6 - 19 mg/dL [facility] CREATININE 0.70 0.5 - 1.5 mg/dL [facility] GLUCOSE 108(H) 70 - 99 mg/dL [facility] ALBUMIN 4.2 3.9 - 4.8 g/dL [facility] TOTAL PROTEIN 7.2 6.5 - 8.0 g/dL [facility] CALCIUM 9.8 8.4 - 10.3 mg/dL [facility] ALKALINE PHOSPHATASE 94 39 - 117 U/L [facility] TOTAL BILIRUBIN 0.4 0.0 - 1.2 mg/dL [facility] AST 28 0 - 37 U/L [facility] ALT 17 0 - 40 U/L [facility] GLOBULIN 3.0 1 - 4.8 g/dL [facility] EGFR 102 >59 mL/min/1.7 3m2 [facility] Comment:Estimated glomerular filtration rate calculated using the CKD-EPI refit equation. ANION GAP 13 10 - 20 mmol/L [facility] Blood 07/04/2022 9:13 AM EDT 07/04/2022 9:17 AM EDT Komal Troy SOLE CUTTER LAB BLOOD ORDERABLES Yaneth l Result Performing Organization Address [facility] Co de Phone Number [address] [address] * CBC (07/04/2022 9:13 AM EDT) WBC 5.88 4.00 - 11.00 K/uL [facility] RBC 4.64 3.72 - 5.30 M/uL [facility] HGB 14.2 10.6 - 15.5 g/dL [facility] HCT 42.1 32.0 - 45.0 % [facility] PLT 211 140 - 430 K/uL [facility] MCV 90.7 78.0 - 97.0 fL [facility] MCH 30.6 25.0 - 33.0 pg [facility] MCHC 33.7 32.0 - 36.0 g/dL [facility] RDW 12.4 11.0 - 16.0 % [facility] MPV 10.3 8.4 - 12.8 fl [facility] Blood 07/04/2022 9:13 AM EDT 07/04/2022 9:17 AM EDT Komal Troy NP LAB BLOOD ORDERABLES Yaneth l Result Performing Organization Address [facility] Co de Phone Number [address] [address] * Immunoglobulin A (07/04/2022 9:13 AM EDT) IgA 252 70 - 400 mg/dL [facility] Blood 07/04/2022 9:13 AM EDT 07/04/2022 9:17 AM EDT Komal Troy NP LAB BLOOD ORDERABLES Yaneth l Result Performing Organization Address City/[facility]/ZIP Co de Phone Number [facility] [address] [place] [address] * Tissue transglutaminase IgA (07/04/2022 9:13 AM EDT) TTG IGA ANTIBODY 2.2 <4.0 (Negative) U/mL [facility] Blood 07/04/2022 9:13 AM EDT 07/04/2022 9:17 AM EDT us Komal Troy SOLE CUTTER LAB BLOOD ORDERABLES Yaneth l Result [facility] [address] [place] [address] documented in this encounter Visit Diagnoses Diagnosis Gastroesophageal reflux disease, unspecified whether esophagitis present- Primary documented in this encounter Care Teams Power Generation Equipment Repairer Relationship Specialty Start Date End Date Mendoza Cross DO PCP - General 09/07/17 Mednoza Cross DO Historical LMR Provider 06/19/17 documented as of this encounter Additional Source Comments The information contained in this document represents components of the legal health record. It is not the complete legal health record.[facility]
--- OUTSIDE RECORDS SUMMARY | 2025-05-30 15:22 | XMS_ITS | Encounter Summary ---
Author Organization [facility] Address [address] [facility] [address] [place] [address] Phone Care Team Providers Care Dietitian Teaching Name Role Phone Mendoza Cross DO Unavailable Valentina Escalona MD Unavailable Dena Che FIBER TECHNOLOGIST Unavailable [phone] [place]Karrie jaffe FIBER TECHNOLOGIST Unavailable [phone] Mendoza Cross DO Primary Care Provider [phone] Reason for Referral * MRI/CAT Scan - Closed Specialty Diagnoses / Procedures Referred By Diego mckeon Referred To Contact Radiology Diagnoses Abdominal pain, unspecified abdominal location Procedures CT Abdomen/Pelvis Mendoza Cross DO Phone: tel: fax: [email or web address]:[email or web address] Referral ID Status Reason Start Date Expiration Date Visits Re quested Visits Authorized [id number] Closed 07/29/2020 01/25/2021 1 1 Encounter Details Date Type Department Care Team (Late st Contact Info) Description 07/29/2020 Transcribe Orders Virtual Department 30 [place] [address] Mendoza Cross DO [address] [facility] [place] [address] Abdominal pain, unspecified abdominal location (Primary Dx) [...] Description 08/13/2025 8:15 AM EST Office Visit [facility] 10 [place] [address] Unknown, Unknown, Komal Asher, KORY 10 [place] [address] documented as of this encounter Results * [...] documented as of this encounter Care Teams Dietitian Teaching Relationship Specialty Start Date End Date Mendoza Cross DO PCP - General 09/07/17 Mendoza Cross DO Historical LMR Provider 06/19/17 Valentina Escalona MD [address] [place] [address], 2[address] [place] [address] Historical LMR Provider 06/19/17 09/11/21 Dena Che NP 21 [place] [address] [email or web address] Historical LMR Provider 06/19/17 2 Karrie Umaña NP [address] [place] [address] Historical LMR Provider 06/19/17 2 documented as of this encounter Additional Source Comments The information contained in this document represents components of the legal health record. It is not the complete legal health record.[facility]
--- OUTSIDE RECORDS SUMMARY | 2025-05-30 15:22 | XMS_ITS | Encounter Summary ---
Author Organization [facility] Address [address] [facility] [address] [place] [address] Phone Care Team Providers Care Heating Systems Installer Name Role Phone Mendoza Cross DO Unavailable Valentina Escalona MD Unavailable [phone] Dena Che TECHNICAL SUPPORT SPECIALIST Unavailable [place]Karrie jaffe TECHNICAL SUPPORT SPECIALIST Unavailable Mendoza Cross DO Primary Care Provider [phone] Encounter Details Date Type Department Care Team (Late st Contact Info) Description 10/26/2020 Transcribe Orders Virtual Department 30 [place] [address] Mendoza Cross DO [address] [place] [address] Acute recurrent sinusitis, unspecified location (Primary Dx) [...] Visit [facility] 10 [place] [address] Unknown, Unknown, Komal Asher NP 10 [place] [address] documented as of this encounter Visit Diagnoses Diagnosis Acute recurrent sinusitis, unspecified location- Primary documented in this encounter Additional Health Concerns Infection Onset Date Last Indicated Resolved Time CoV-Risk 12/30/2021 12/30/2021 12/31/2021 11:5 8 AM EDT COVID-19 12/30/2021 12/30/2021 01/20/2022 1:22 AM EDT documented as of this encounter Care Teams Heating Systems Installer Relationship Specialty Start Date End Date Mendoza Cross DO PCP - General 09/07/17 Mendoza Cross DO Historical LMR Provider 06/19/17 Valentina Escalona MD [address] [place] [address], [address] [place] [address] Historical LMR Provider 06/19/17 09/11/21 Dena Che TECHNICAL SUPPORT SPECIALIST 21 [place] [address] [email or web address] Historical LMR Provider 06/19/17 2 Karrie Umaña NP [address] [place] [address] Historical LMR Provider 06/19/17 2 documented as of this encounter Additional Source Comments The information contained in this document represents components of the legal health record. It is not the complete legal health record.[facility]
--- OUTSIDE RECORDS SUMMARY | 2025-05-30 15:22 | XMS_ITS | Encounter Summary ---
Author Organization [facility] Address [address] [facility] [address] [place] [address] Phone Care Team Providers Care Senior Mechanical Project Engineer Name Role Phone Huangphong Mendoza Hernandez DO Unavailable Valentina Escalona MD Unavailable Dena Che FOREST WORKER Unavailable [phone] CarsonKarrie jaffe FOREST WORKER Unavailable [phone] Mendoza Cross DO Primary Care Provider [phone] Encounter Details Date Type Department Care Team (Late Contact Info) Description 09/18/2017 Procedure Pass [facility] Endoscopy Admitting Dept Virtual Department 30 [place] [address] Social History Tobacco Use Types Packs/Day Years [...] Description 08/13/2025 8:15 AM EST Office Visit [facility] 10 [place] [address] Unknown, UnknownMD Sydni Janet Ann, NP 10 [place] [address] documented as of this encounter Visit Diagnoses Not on filedocumented in this encounter Additional Health Concerns Infection Onset Date Last Indicated Resolved Time CoV-Risk 12/30/2021 12/30/2021 12/31/2021 11:5 8 AM EDT COVID-19 12/30/2021 12/30/2021 01/20/2022 1:22 AM EDT documented as of this encounter Care Teams Senior Mechanical Project Engineer Relationship Specialty Start Date End Date Mendoza Cross DO PCP - General 09/07/17 Mendoza Cross DO Historical LMR Provider 06/19/17 Valentina Escalona MD [address] [facility], [address] [place] [address] Historical LMR Provider 06/19/17 09/11/21 Dena Che NP 21 [place] [address] [email or web address] Historical LMR Provider 06/19/17 2 Karrie Umaña NP [address] [place] [address] Historical LMR Provider 06/19/17 2 documented as of this encounter Additional Source Comments The information contained in this document represents components of the legal health record. It is not the complete legal health record.[facility]
--- OUTSIDE RECORDS SUMMARY | 2025-05-30 15:22 | XMS_ITS | Encounter Summary ---
Author Organization [facility] Address [address] [facility] [address] [place] [address] Phone Care Team Providers Care Tube Coremaker Name Role Phone Mendoza Cross DO Unavailable HuangMendoza darling Primary Care Provider [phone] Reason for Referral * Outpatient Procedure - Closed Specialty Diagnoses / Procedures Referred By Diego mckeon Referred To Contact Radiology Diagnoses Gastroparesis Procedures NM Gastric Emptying Reno Stevens MD Phone: tel: fax: [email or web address] Referral ID Status Reason Start Date Expiration Date Visits Re quested Visits Authorized [id number] Closed 02/24/2023 1 1 Encounter Details Date Type Department Care Team (Latest Contact Info) Description 02/24/2023 Transcribe Orders Virtual Department 30 [place] [address] Reno Stevens MD [address] [place] [address] [email or web address] Gastroparesis (Primary Dx) Social History Tobacco Use [...] Description 08/13/2025 8:15 AM EST Office Visit [facility] 10 [place] [address] Unknown, Unknown, Komal Asher, KORY 10 [place] [address] documented as of this encounter Results * [...] and 90% at 4 hours. Procedure Note Parker Strong MD - 04/25/2023 NM GASTRIC EMPTYING [...] Gastroparesis documented in this encounter Care Teams Tube Coremaker Relationship Specialty Start Date End Date Mendoza Cross DO PCP - General 09/07/17 Mendoza Cross DO [email or web address] Historical LMR Provider 06/19/17 documented as of this encounter Additional Source Comments The information contained in this document represents components of the legal health record. It is not the complete legal health record.[facility]
--- OUTSIDE RECORDS SUMMARY | 2025-05-30 15:22 | XMS_ITS | Encounter Summary ---
Author Organization [facility] Address [address] [facility] [address] [place] [address] Phone Care Team Providers Care Sports Therapist Name Role Phone Mendoza Cross DO Unavailable Valentina Escalona MD Unavailable Dena Che CYTOGENETIC TECHNOLOGIST Unavailable [place]Karrie jaffe CYTOGENETIC TECHNOLOGIST Unavailable Mendoza Cross DO Primary Care Provider Encounter Details Date Type Department Care Team (Late st Contact Info) Description 10/27/2020 Ancillary Orders Virtual Department 30 [place] [address] Mendoza Cross DO [address] [facility] [place] [address] Acute recurrent sinusitis, unspecified location Social History Tobacco Use Types [...] Description 08/13/2025 8:15 AM EST Office Visit [facility] 10 [place] [address] Unknown, Unknown, Komal Asher NP 10 [place] [address] documented as of this encounter Results * XR PARANASAL SINUSES 3 OR MORE VIEWS (10/27/2020 5:20 PM EST) Anatomical Region Laterality Modality Face Computed Radiogr aphy 10/27/2020 5:27 PM EST Impressions 10/27/2020 5:28 PM EST Probable mild mucosal thickening in the maxillary sinuses. Narrative 10/27/2020 5:28 PM EST 4 views of the paranasal sinuses obtained. No prior. Appears to be peripheral thickening around both maxillary sinuses. No air-fluid level. Pneumatization normal. No bony lesions seen. Orbits unremarkable. Procedure Note Luis Angel Carter MD - 10/27/2020 4 views of the paranasal sinuses obtained. No prior. Appears to beperipheral thickening around both maxillary sinuses. No air-fluid level.Pneumatization normal. No bony lesions seen. Orbits unremarkable. IMPRESSION: Probable mild mucosal thickening in the maxillary sinuses. Mendoza Cross DO IMG XR HEAD AND SHUNT SERIES Fin al Result documented in this encounter Visit Diagnoses Diagnosis Acute recurrent sinusitis, unspecified location Acute recurrent sinusitis, unspecified location documented in this encounter Additional Health Concerns Infection Onset Date Last Indicated Resolved Time CoV-Risk 12/30/2021 12/30/2021 12/31/2021 11:5 8 AM EDT COVID-19 12/30/2021 12/30/2021 01/20/2022 1:22 AM EDT documented as of this encounter Care Teams Sports Therapist Relationship Specialty Start Date End Date Mendoza Cross DO [email or web address] PCP - General 09/07/17 Mendoza Cross DO Historical LMR Provider 06/19/17 Valentina Escalona MD [address] [address] [email or web address] Historical LMR Provider 06/19/17 09/11/21 Dena Che NP 21 [place] [address] [email or web address] Historical LMR Provider 06/19/17 2 Karrie Umaña NP [address] [place] [address] Historical LMR Provider 06/19/17 2 documented as of this encounter Additional Source Comments The information contained in this document represents components of the legal health record. It is not the complete legal health record.[facility]
--- OUTSIDE RECORDS SUMMARY | 2025-05-30 15:22 | XMS_ITS | Encounter Summary ---
Author Organization [facility] Address [address] [facility] [address] [place] [address] Phone Care Team Providers Care Button Maker Name Role Phone Mendoza Cross DO Unavailable Valentina Escalona MD Unavailable Dena Che OFFICE SUPPORT Unavailable OraKarrie jaffe OFFICE SUPPORT Unavailable Mendoza Cross DO Primary Care Provider [phone] Encounter Details Date Type Department Care Team ([facility] Contact Info) Description 04/09/2019 Ancillary Orders Virtual Department 30 [place] [address] Lashaun Bradley, BARBARA [address] Radha Davenport. Zain. [address] [place] [address] Other specified disorders of bone density and [...] Encounters Date Type Department Care Team (Late Contact Info) Description 08/13/2025 8:15 AM EST Office Visit [facility] 10 [place] [address] Unknown, Unknown, Komal Asher NP 10 [place] [address] documented as of this encounter Visit Diagnoses Diagnosis Other specified disorders of bone density and structure, unspecified site Osteopenia, unspecified location documented in this encounter Additional Health Concerns Infection Onset Date Last Indicated Resolved Time CoV-Risk 12/30/2021 12/30/2021 12/31/2021 11:5 8 AM EDT COVID-19 12/30/2021 12/30/2021 01/20/2022 1:22 AM EDT documented as of this encounter Care Teams Button Maker Relationship Specialty Start Date End Date Mendoza Cross DO PCP - General 09/07/17 Mendoza Cross DO Historical LMR Provider 06/19/17 Valentina Escalona MD [address] [place] [address], [address] [place] [address] Historical LMR Provider 06/19/17 09/11/21 Dena Che NP 21 [place] [address] [email or web address] Historical LMR Provider 06/19/17 2 Karrie Umaña NP [address] [place] [address] Historical LMR Provider 06/19/17 2 documented as of this encounter Additional Source Comments The information contained in this document represents components of the legal health record. It is not the complete legal health record.[facility]
--- OUTSIDE RECORDS SUMMARY | 2025-05-30 15:22 | XMS_ITS | Data Portability ---
Author Organization [facility], Telehealth Patient Home Address [address] [place] [address] Assessment No assessment recorded. Plan of Treatment Reminders Order Date Submit Date Provider Last Modified By Organization Details Last Modified Time Details Appointments ANNUAL EXAM 2024 04:00P M ANNELISE DUONG Not available Not available Not available Nurse Visit 15 2024 04:00P M Melissa [facility] Not available Not available Not available Lab None recorded. Referral None recorded. Procedures None recorded. Surgeries None recorded. Imaging None recorded. Medication Orders cyanocoba bárbara (vit B-12) 1,000 mcg/mL injection solution 2024 025 [employer] [facility] #[id number], [address] [place], [place], [phone], 05/21/2025 10:35:13 cyanocoba bárbara (vit B-12) 1,000 mcg/mL injection solution 2024 025 [id number], [address] [place], [place], [id number], 04/14/2025 15:43:12 cyanocoba bárbara (vit B-12) 1,000 mcg/mL injection solution 2024 025 [facility] [place] [facility] [employer] [facility] #[id number], [address], [place], [id number], 03/15/2025 08:45:27 cyanocoba bárbara (vit B-12) 1,000 mcg/mL injection solution 2024 025 Not available 01/29/2025 15:49:47 Vitamin B-12 1,000 mcg/mL injection solution 2024 025 [email or web address] [facility] #[id number], [address], [place], [id number], 12/30/2024 21:29:55 Patient TargetsNo targets recorded. Patient InstructionsNo instructions recorded. Reason for Referral None Reported. Results Created Date Observation Date Name Description Value Unit Range Abnormal Flag Note LastModifiedBy Organization Detail LastModifiedTime 05/09/2005/07/2025 MAMMO , jamaal gutierrez, digit al, bilat eral No observ ation record ed. [email or web address] [facility] [address] [place], [address], 05/09/2025 16:36:52 Result Notes None recorded. Problems Name Problem SNOMED Code Status Onset Date Resolution Date Notes Provider Name and Address Organization Details Recorded Time Gastroesop hageal reflux disease 949448136 Active 2017 Sol sullivan [facility] 8 11:51:09 Cobalamin deficiency 656108401 Active 2017 Sol sullivan [facility] 8 11:08:50 Gastropare sis syndrome 626280147 Active 2018 SANDIP Bradley [address] [place], [address], [facility] 9 14:56:51 Helicobact er pylori gastrointe stinal tract infection 656950548 Active 2018 Not Available [employer] 2 16:32:05 COVID-19 908000613 Active 2021 ANNELISE DUONG [address] [place] [address], [address], [facility] 2 10:46:39 Thoracic back pain 847645388 Active 2021 Mendoza Cross DO [address] [place] [address], [address], [facility] 2 16:03:14 Rib pain 329550120 Active 2021 Mendoza Cross, DO [address] [place] [address], [address], [facility] 2 16:03:59 Left flank pain 312613769 Active 2021 Mendoza Cross, DO [address] [place] [address], [address], [facility] 2 21:54:27 Acute urinary tract infection 888705390 Active 2022 ANNELISE DUONG [address] [place] [address], [address], [facility] 3 15:36:26 Abdominal pain 57207857 Active 2022 ANNELISE DUONG [address] [place] [address], [address], [facility] 3 15:36:36 Diverticul itis of colon 452701052 Active 2022 ANNELISE DUONG [address] [place] [address], [address], [facility] 3 15:30:58 Pain of multiple joints 53210365 Active 2022 ANNELISE DUONG [address] [place] [address], [address], [facility] 3 16:05:16 Diverticul osis of colon 789389227 Active 2022 Mendoza Cross DO [address] [place] [address], [address], [facility] 3 16:24:24 Irritable bowel syndrome 89362252 Active 2023 Mendoza Cross DO [address] [place] [address], [address], [facility] 4 13:37:24 Nondiabeti c gastropare sis 67160066 Active 2023 Mendoza MaryLashae EncinasphongDO [address] [facility], [place], [address], [facility] Internal [facility] 4 15:35:23 Acute bronchitis 75963620 Active 2024 ANNELISE DUONG [address] [place], [address], [facility] Internal [facility] 5 16:00:15 Problem Notes None recorded. Procedures Surgical History Date Name Laterality Status Provider Name and Address Organization Details Recorded Time 03/10/20 20 Most Recent Mammogram completed [facility] 03/11/2020 08:26:45 Cholecystectomy completed [facility] 02/06/2019 08:36:32 Imaging Results None recorded. Procedure Notes None recorded. Medical Equipment None Reported. Allergies Allergen ID Allergen Name Allergen Category Reaction Reaction Severity Criticality Documentation Date Start Date Code Code System Note Provider Name and Address Organization Details Recorded Time 929 erythromy tana medicatio n Not available Not available Not available 12/15/2017 4053 RxNorm Karo Mccord [facility] 8 16:41:37 Medications Name Sig Start Date Stop Date Status Note LastModified by Organization Details LastModified Time cyclobenzap rine 10 mg tablet Take 1 tablet every day by oral route at bedtime for 30 days. 09/18 completed Not Available Not Available Not Available prednisone 10 mg tablet 4 mg x 3 days, 30mg X 3 days, 20mg X 3 days, 10mg X 3 days 04/29 completed Not Available Not Available Not Available doxycycline hyclate 100 mg capsule 07/22 completed Not Available Not Available Not Available meloxicam 15 mg tablet 07/22 completed Not Available Not Available Not Available ondansetron HCl 4 mg tablet TAKE 2 TABLETS BY MOUTH TWICE DAILY FOR 14 DAYS active Not Available Not Available No t Available famotidine 40 mg tablet TAKE 1 TABLET BY MOUTH EVERY DAY AT BEDTIME active Not Available Not Available No t Available metronidazo le 250 mg tablet TK 1 T PO TID FOR 10 DAYS 10/23 completed Not Available Not Available Not Available ciprofloxac in 500 mg tablet Take 1 tablet every 12 hours by oral route for 10 days. 05/17 completed Not Available Not Available Not Available amoxicillin 875 mg tablet TAKE 1 TABLET BY MOUTH EVERY 12 HOURS FOR 7 DAYS active Not Available Not Available No t Available dicyclomine 20 mg tablet 04/08 completed Not Available Not Available Not Available cyanocobala min (vit B-12) 1,000 mcg/mL injection solution Inject 1 mL every month by subcutane ous route. 2024 active Not Available Not Available Not Avai lable omeprazole 20 mg capsule,del ayed release TAKE 1 CAPSULE BY MOUTH EVERY DAY 30 MINUTES BEFORE BREAKFAST active Not Available Not Available No t Available diclofenac sodium 75 mg tablet,julia yed release Take 1 tablet twice a day by oral route for 30 days. 11/05 completed Not Available Not Available Not Available bisacodyl 5 mg tablet,julia yed release 03/23 completed Not Available Not Available Not Available diclofenac sodium 50 mg tablet,julia yed release Take 1 tablet twice a day by oral route as needed for 30 days. 09/18 completed Not Available Not Available Not Available loteprednol etabonate 0.5 % eye drops,suspe nsion 05/17 completed Not Available Not Available Not Available levofloxaci n 750 mg tablet 03/23 completed Not Available Not Available Not Available methylpredn isolone 4 mg tablets in a dose pack FOLLOW PACKAGE DIRECTION S active Not Available Not Available No t Available phenobarb-h yoscyamn-at ropine-scop 16.2 mg-0.1037 mg-0.0194 mg tablet TAKE 1 TABLET BY MOUTH THREE TIMES DAILY FOR 7 DAYS NEEDED active Not Available Not Available No t Available doxycycline hyclate 100 mg tablet 03/23 completed Not Available Not Available Not Available naproxen 500 mg tablet 03/23 completed Not Available Not Available Not Available amoxicillin 875 mg-potassiu m clavulanate 125 mg tablet TAKE 1 TABLET BY MOUTH EVERY 12 HOURS WITH MEALS FOR 10 DAYS 10/30 completed Not Available Not Available Not Available Restasis 0.05 % eye drops in a dropperette USE 1 DROP INTO EACH EYE TWICE DAILY 10/30 completed Not Available Not Available Not Available IBU-200 Takes 2-3 tablet twice a day prn 05/17 completed Not Available Not Available Not Available multivitami n Take one tablet once a day 05/17 completed Not Available Not Available Not Available GaviLyte-G 236 gram-22.74 gram-6.74 gram-5.86 gram oral solution 03/23 completed Not Available Not Available Not Available Dasetta (28) 0.5 mg(7)/0.75 mg(7)/1 mg(7)-35 mcg tablet 03/23 completed Not Available Not Available Not Available Xiidra 5 % eye drops in a dropperette PLACE 1 DROP BOTH EYES TWICE DAILY active Not Available Not Available No t Available Restasis MultiDose 0.05 % eye drops INSTILL 1 DROP BOTH EYES TWICE DAILY 05/17 completed Not Available Not Available Not Available Vitals None Recorded Social History Question Answer Notes LastModified by Organizat ion Details LastModified Time Tobacco Smoking Status Never Smoker Not Available [facility] 07/07/2020 03:36:24 What Was The Date Of Your Most Recent Tobacco Screening? 05/28/2024 Information not available 05/28/2024 Sex: Unknown Functional Status Question Answer Note LastModified by Organization D etails LastModified Time Do you or have you ever used any other forms of tobacco or nicotine? No Information not available 11/22/2023 Mental Status None recorded. Family History Relationship Description Onset Age of this Age Resolved Age Notes LastModified by Organization Details LastModified Time Mother Family history of malignant neoplasm ovaria n sbucko Not available 02/06/2019 08:27:09 Maternal Grandmother Family history of malignant neoplasm breast sbucko Not available 2018 08:27:32 Medical History No medical history recorded. Gynecological History Statement/Question Response Most Recent Mammogram 03/10/2020 Obstetrics History GPAL:G 0 P 0 0 0 0 Immunizations Vaccine Type Date Status Note Provider Nam e and Address Organization Details Recorded Time COVID-19, mRNA, LNP-S, PF, 30 mcg/0.3 mL dose 12/19/2020 completed [facility] 01/05/2021 08:54:20 Past Encounters Encounter ID Performer Location Encounter Start Date Encounter Closed Date Diagnosis/Indication Diagnosis SNOMED-CT Code Diagnosis ICD10 Code Diagnosis IMO Codes Diagnosis Note [id number] Mendoza Cross [facility] [address] [facility] [address] [address] 12/15/2017 15:46:22 12/15/2017 17:09:18 Cobalamin deficiency 426733248 E53.8 [id number] Mendoza Cross [facility] [address] [facility] [address], [place] [address] 01/17/2018 15:50:51 01/18/2018 11:47:52 Cobalamin deficiency 929969188 E53.8 [id number] Mendoza Cross [facility] Internal [address],[place] [address] 02/14/2018 15:37:08 02/16/2018 08:22:12 Cobalamin deficiency 949165448 E53.8 [id number] Mendoza Encinasphong [facility] Internal [facility] [address],[place] [address] 03/14/2018 15:40:43 03/14/2018 16:15:45 Cobalamin deficiency 800111078 E53.8 [id number] Mendoza Cross [facility] Internal [address],[place] [address] 03/23/2018 11:27:15 03/23/2018 12:30:34 Pain of multiple joints 04211336 M25.50 ibuprofen + tylenol as needed Essential hypertension 38527270 I10 recheck in 2 weeks lifestyle changes in meantime [id number] Mendoza Encinasphong [facility] [address] [facility] [address], [place] [facility] [place] [address] 04/06/2018 08:51:02 04/06/2018 13:36:05 Essential hypertension 62906814 I10 better today, will continue to monitor. Neck pain 83735915 M54.2 sx suggestive of occipital neuralgia, will consult pain management for occipital nerve injection if conservati ve care fails nsaid/flex eril/stret higinio/heat Lateral epicondylitis 20 8383098 M77.11 will try to treat conservati velybrace, ice, rest, anti-infla mmatory [id number] Mendoza Cross [facility] [address] [facility] [address] 04/11/2018 15:39:35 04/16/2018 09:23:06 Cobalamin deficiency 002980181 E53.8 [id number] Mendoza Cross [facility] [address] [facility] [address] [address] 05/09/2018 15:45:04 05/09/2018 16:07:05 Disorder of vitamin B12 067682343 E53.8 [id number] Mendoza Cross [facility] [address] [facility] [address] [address] 05/29/2018 09:52:04 05/29/2018 10:28:51 Essential hypertension 57399948 I10 better today, will continue to monitor. Neck pain 25199576 M54.2 continue flexeril at bedtime continue diclofenac Lateral epicondylitis 20 7983649 M77.11 resolved [id number] Mendoza Encinasphong [facility] [address] [facility] [address] 06/06/2018 15:38:50 06/06/2018 16:41:42 [id number] Mendoza Cross [facility] [address] [facility] [address] 07/06/2018 15:41:59 07/06/2018 16:34:38 Cobalamin deficiency 285798491 E53.8 [id number] [facility] [address] [facility] [address] [address] 08/08/2018 15:40:59 08/13/2018 08:57:58 Cobalamin deficiency 852133956 E53.8 [id number] Mendoza Encinasphong [facility] [address] [facility] [address] 09/07/2018 15:41:35 09/07/2018 16:21:17 Cobalamin deficiency 784756608 E53.8 [id number] Mendoza Cross [facility] [address] [facility], [place] [address] 09/18/2018 13:16:28 09/18/2018 16:47:04 Left sided chest pain 982189192 R07.9 she presented in severe pain. she requires EMS as she was unable to drive to ER for pain control so her chest pain can be worked up. I doubt its PE/ACS given her prior work up, however she does have an unexplaine d elevated d-dimer Gastropare sis syndrome 627863243 K31.84 she was given dicyclomin e, I'm not convinced this would cause her current level of pain Cobalamin deficiency 190 715256 E53.8 Gastroesop hageal reflux disease 327292020 K21.9 i suppose its possible there is an ulcer, though cbc doesn't suggest any GI bleeding [id number] Mendoza Cross [facility] [address] [facility], [place] [address] 10/08/2018 15:41:51 10/08/2018 15:54:46 Cobalamin deficiency 478606344 E53.8 [id number] [facility] [address] [facility] [address] [facility], [place] [address] 11/12/2018 15:43:17 11/12/2018 16:24:23 Cobalamin deficiency 334699804 E53.8 [id number] Mendoza Cross [facility] [address] [facility], [place] [address] 12/10/2018 15:42:05 12/10/2018 15:52:03 Cobalamin deficiency 542235327 E53.8 [id number] Mendoza Cross [facility] [address] [facility], [place] [place] [facility] [place] [address] 01/09/2019 15:36:14 01/09/2019 15:52:11 Cobalamin deficiency 930634911 E53.8 [id number] Mendoza Cross [facility] [address] [facility], [place] [address] 02/25/2019 09:47:30 02/25/2019 14:59:35 Cobalamin deficiency 734444448 E53.8 [id number] Mendoza Cross [facility] [address] [place] [address] 03/27/2019 15:39:34 03/27/2019 16:14:31 Cobalamin deficiency 014594044 E53.8 [id number] Mendoza Cross [facility] [address] [facility],[place] [address] 04/08/2019 08:57:43 04/08/2019 09:45:38 Abdominal bloating 272598498 R14.0 refer back to GI for possible gastropare sis dx in meant time small frequent meals to minimize bloating consider cutting out wheat/dair y Fatigue 17510355 R53.83 chronic fatigue syndrome? Pain of mu ltiple joints 60550013 M25.50 ibuprofen + tylenol as needed rheumatoid labs and tick borne illness all negative will get imaging of painful joints consider rheum vs ortho pending imaging results Vitamin D deficiency 347 29595 E55.9 Chronic cough 15902340 R 05 if cough persist after [place]r [id number] Mendoza Cross [facility] [address] [place] [address] 05/01/2019 15:40:30 05/01/2019 16:07:16 Cobalamin deficiency 084927680 E53.8 [id number] Mendoza Cross [facility] [address] [facility],[place] [address] 05/29/2019 15:38:59 05/29/2019 16:16:10 Cobalamin deficiency 775273581 E53.8 [id number] Mendoza Cross [facility] [address] [place] [address] 06/28/2019 15:40:53 06/28/2019 16:06:52 Cobalamin deficiency 025543141 E53.8 [id number] Mendoza Cross [facility] [address] [place] [address] 07/29/2019 15:39:04 07/29/2019 15:43:53 Cobalamin deficiency 889718964 E53.8 [id number] Mendoza Cross [facility] [address] [facility] [address] [address] 09/06/2019 15:42:40 09/06/2019 15:53:40 Cobalamin deficiency 003788183 E53.8 [id number] Mendoza Cross [facility] Internal [facility] [address] [facility] [address] [address] 10/11/2019 15:40:20 10/11/2019 16:02:03 Cobalamin deficiency [id number] E53.8 [id number] Mendoza Cross [facility] [address] [facility] [address] 11/11/2019 15:42:06 11/11/2019 16:05:39 Cobalamin deficiency 187905901 E53.8 [id number] Mendoza Cross [facility] Internal [facility] [address] [facility],[place] [address] 12/11/2019 10:52:33 12/11/2019 14:29:41 Cobalamin deficiency 911143151 E53.8 [id number] Mendoza Cross [facility] Internal [facility] [address] [facility],[place] [address] 01/10/2020 11:50:32 01/10/2020 12:02:58 Cobalamin deficiency 704005771 E53.8 [id number] Mendoza Cross [facility] Internal [facility] [address] [facility],[place] [address] 02/12/2020 15:42:58 02/12/2020 15:58:59 Cobalamin deficiency 651305061 E53.8 [id number] Mendoza Cross [facility] [address] [facility] [address] 03/16/2020 15:39:42 03/16/2020 15:49:43 Cobalamin deficiency 580679192 E53.8 [id number] Mendoza Cross [facility] [address] [facility] [address] 04/15/2020 15:33:50 04/15/2020 16:02:12 Cobalamin deficiency 477037670 E53.8 [id number] Mendoza Cross [facility] [address] [facility] [address] 05/18/2020 15:41:43 05/18/2020 16:43:43 Cobalamin deficiency [id number] E53.8 [id number] Mendoza Cross [facility] [address] [facility] [address] 06/17/2020 15:45:05 06/17/2020 16:11:24 Cobalamin deficiency 978663918 E53.8 [id number] Mendoza Cross [facility] [address] [facility],[place] [address] 07/17/2020 15:44:51 07/17/2020 15:54:55 Cobalamin deficiency 922438766 E53.8 [id number] Mendoza Cross [facility] [address] [facility] [address] 07/22/2020 15:53:40 07/22/2020 16:49:49 Left upper quadrant pain 849878457 R10.12 am suspicious of the LEFT splenic flexure will use citrate of mag and minimal food and dairy and see if this allleviate [place] some [place] the [place] [id number] Mendoza Cross [facility] [address] [facility] [address] 07/28/2020 16:21:14 07/28/2020 16:59:40 Abdominal pain 96643948 R10.9 [id number] Mendoza Cross [facility] [address] [facility] [address] 08/21/2020 15:43:42 08/21/2020 16:29:53 Cobalamin deficiency 856275353 E53.8 [id number] Mendoza Cross [facility] [address] [facility], it[address] [facility] [place] [address] 09/23/2020 15:41:22 09/23/2020 15:58:40 Cobalamin deficiency 621875022 E53.8 [id number] Mendoza Cross [facility] Internal [facility] [address] [facility] [address] [facility], [place] [address] 10/14/2020 09:20:45 10/14/2020 14:38:55 Acute sinusitis 05594254 J01.90 based on exam and history, unlikely to be COVID [facility] is allergic to Z yaron related abx will fu if not better [id number] Mendoza Cross [facility] [address] [facility] [place] [address] 11/06/2020 15:38:27 11/06/2020 15:58:24 Cobalamin deficiency 612448093 E53.8 [id number] Mendoza Cross [facility] [address] [facility] [place] [address] 12/07/2020 15:48:59 12/07/2020 16:00:29 Cobalamin deficiency 962750744 E53.8 [id number] Mendoza Cross [facility] Internal [facility] [address] [facility] [place] [address] 01/05/2021 08:46:58 01/05/2021 09:46:28 Active or passive immunization 146147174 Z23 Adult [facility] th examination 856107510 Z00.00 doing great except for the gastroapre sis pt is still frustrated with this and is unable to eat a full meall usually eats a few bites and then has to stop.... [id number] Mendoza Cross [facility] [address] [facility], [place] [address] 01/11/2021 15:43:25 01/12/2021 08:26:45 Cobalamin deficiency 615054089 E53.8 [id number] Mendoza Cross [facility] [address],[place] [address] 02/22/2021 09:22:11 02/22/2021 09:49:17 Cobalamin deficiency [id number] E53.8 [id number] Mendoza HernandezLashae Cross, [facility] [address] [facility] [address],[place] [place] [address] 03/22/2021 15:42:20 03/22/2021 16:14:49 Cobalamin deficiency [id number] E53.8 [id number] Mendzoa Maddox [facility] [address],[place] [address] 04/26/2021 15:42:03 04/26/2021 16:11:48 Cobalamin deficiency [id number] E53.8 [id number] Mendoza MaryLashae Cross [facility] [address] [facility] [address],[place] [address] 06/25/2021 13:40:26 06/25/2021 13:58:51 Cobalamin deficiency 989384312 E53.8 [id number] Mendoza [facility]ashae [facility] [address] [facility] [address],[place] [address] 07/26/2021 15:43:53 07/26/2021 16:02:31 Cobalamin deficiency [id number] E53.8 [id number] Mendoza [facility]Lashae [facility] [address],[place] [address] 10/18/2021 15:41:50 10/19/2021 08:37:52 Cobalamin deficiency 076843881 E53.8 [id number] [facility]endoza [facility]ashae [facility] [address],[place] [address] 11/17/2021 15:39:30 11/17/2021 16:36:32 Cobalamin deficiency 241951189 E53.8 [id number] Mendoza MaryLashae Cross [facility] [address],[place] [address] 12/22/2021 09:47:46 12/22/2021 10:18:22 Cobalamin deficiency 821235749 E53.8 [id number] Mendoza Cross [facility] [address] [facility] [address],[place] [address] 01/24/2022 15:41:42 01/25/2022 14:51:45 Cobalamin deficiency 879184553 E53.8 [id number] Mendoza Cross [facility] [address] [facility] [address],[place] [address] 02/25/2022 09:55:58 02/25/2022 12:43:28 Cobalamin deficiency 024362774 E53.8 [id number] Mendoza Cross [facility] [address] [facility],[place] [facility] [place] [address] 03/28/2022 15:39:37 03/28/2022 15:57:21 Cobalamin deficiency [id number] E53.8 [id number] Mendoza Cross [facility] [address] [facility] [address], it[place] [address] 04/29/2022 15:28:01 04/29/2022 16:08:49 Active or passive immunization 103743259 Z23 advised due for Tdap Adult [facility] th examination 898684514 Z00.01 doing great except for the gastroapre sis pt is still frustrated with this and is unable to eat a full meall usually eats a few bites and then has to stop....st ill having pain in her left flankradia lea around to her LUQ just below the rib Thoracic back pain 84904 8004 M54.6 Rib pain 433669361 R07.8 1 [id number] Mendoza Cross [facility] [address] [facility],[place] [address] [facility] [place] [place] [address] 05/20/2022 15:32:38 05/20/2022 16:22:05 Cobalamin deficiency 492178432 E53.8 [id number] Mendoza Cross [facility] [address] [facility] [address],[place] [address] 06/20/2022 15:39:59 06/20/2022 16:15:19 Cobalamin deficiency 177008612 E53.8 [id number] Mendoza Cross [facility] [address] [facility] [address] [facility] [address],[place] [address] 07/20/2022 15:38:17 07/20/2022 15:55:54 Cobalamin deficiency 810377598 E53.8 [id number] Mendoza Cross [facility] [address] [facility] [address],[place] [address] 08/22/2022 15:41:22 08/22/2022 16:42:18 Cobalamin deficiency 405906267 E53.8 [id number] Mendoza Cross [facility] [address] [facility] [address],[place] [address] 09/21/2022 15:34:59 09/21/2022 16:08:02 Cobalamin deficiency 615150310 E53.8 [id number] Mendoza Cross [facility] [address] [facility] [address] [facility] [address],[place] [address] 10/18/2022 14:47:32 10/19/2022 08:27:44 Acute urinary tract infection 019455125 N10 will start on cipro Abdominal pain 11172248 R10.12 will set up with STAT CT abd and pelvis [id number] Mendoza Cross [facility] [address],[place] [address] 10/28/2022 15:39:36 10/28/2022 16:11:19 Cobalamin deficiency [id number] E53.8 [id number] Mendoza Cross [facility] [address] [facility] [address] [facility] [address],[place] [address] 12/12/2022 15:43:46 12/12/2022 16:41:05 Cobalamin deficiency [id number] E53.8 [id number] Mendoza Cross [facility] [address] [facility] [address],[place] [address] 01/20/2023 15:38:37 01/20/2023 16:22:55 Cobalamin deficiency 730843490 E53.8 [id number] Mendoza Cross [facility] [address] [facility] [address],[place] [address] 02/22/2023 15:46:18 02/22/2023 16:29:52 Cobalamin deficiency [id number] E53.8 [id number] Mendoza Cross [facility] [address] [facility] [address],[place] [address] 03/31/2023 15:37:25 03/31/2023 16:02:12 Cobalamin deficiency [id number] E53.8 [id number] Mendoza Cross [facility] [address] [facility] [address],[place] [address] 05/03/2023 15:43:17 05/03/2023 16:39:51 Cobalamin deficiency 930896496 E53.8 [id number] Mendoza Cross [facility] [address] [facility] [address],[place] [address] 05/17/2023 15:26:21 05/17/2023 16:22:55 Active or passive immunization 627009358 Z23 up to date Adult [facility] th examination 891669535 Z00.00 stable Cobalamin deficiency 190 260802 E53.8 Gastroesop hageal reflux disease 624186694 K21.9 Pain of mu ltiple joints 49671972 M25.532 [id number] Mendoza Cross [facility] [address],[place] [address] 06/14/2023 15:41:47 06/14/2023 16:25:09 Cobalamin deficiency 441802954 E53.8 [id number] Mendoza Cross [facility] [address],[place] [address] 08/02/2023 15:48:09 08/02/2023 15:51:52 Cobalamin deficiency 097182551 E53.8 [id number] Mendoza Maddox [facility] Internal [address] [address] 08/30/2023 09:23:01 09/01/2023 13:30:15 Abdominal pain 30314687 R10.12 chronic and irritating radiates to the back has had extensive work up including endoscopy, colonoscop y ct scan US ugi xr and gi consult all of which have not shown anything other than extensive diverticul osis throughout the entire colon pts discomfort and bloating sensation is across transverse area and into splenic flexure wondering if she has smoulderin g divertic and to do something a bit unconventi onal we will treat her as a divertic see below Diverticul itis of colon 136202922 K57.32 augmentin 875 bid trial and she will also take probiotic and call me on mon or tu with updateif no help consider mri abd [id number] Mendoza MaryLashae Cross [facility] Internal [address] [address] 09/13/2023 15:36:44 09/15/2023 11:38:18 Cobalamin deficiency 920729087 E53.8 [id number] Mendoza Maddox [facility] Internal [address] [address] 10/13/2023 15:39:36 10/16/2023 14:16:16 [id number] Mendoza MaryLashae Cross [facility] Internal [address] [address] 10/30/2023 13:14:47 10/30/2023 15:52:51 Abdominal pain 57837851 R10.12 given persistanc e of the pain despite a negative CT x2 , colonoscop y, endoscopy the etiology is unknown 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 and irritating radiates to the back has had extensive work up including endoscopy, colonoscop y ct scan US ugi xr and gi consult all of which have not shown anything other than extensive diverticul osis throughout the entire colon pts discomfort and bloating sensation is across transverse area and into splenic flexure wondering if she has smoulderin g divertic and to do something a bit unconventi onal we will treat her as a divertic see below Diverticul itis of colon 762172946 K57.32 augmentin 875 bid trial and she will also take probiotic and call me on mon or with updateif no help consider mri abdtold her not to work out for now Irritable bowel syndrome 82063730 K58.9 [id number] Mendoza Cross [facility] [address] [facility], it[place] [address] 11/22/2023 14:51:39 11/22/2023 15:58:58 Abdominal pain 72792675 R10.12 given persistanc e of the pain despite a negative CT x2 , colonoscop y, endoscopy the etiology is unknown 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 and irritating radiates to the back has had extensive work up including endoscopy, colonoscop y ct scan US ugi xr and gi consult all of which have not shown anything other than extensive diverticul osis throughout the entire colon pts discomfort and bloating sensation is across transverse area and into splenic flexure wondering if she has smoulderin g divertic and to do something a bit unconventi onal we will treat her as a divertic see below Diverticul itis of colon 651405159 K57.32 mri denied by insurance Nondiabeti c gastroparesis 66464314 K31.84 [id number] [facility] [address] [facility],[place] [address] 11/20/2023 15:41:08 11/21/2023 10:46:12 Cobalamin deficiency [id number] E53.8 [id number] Mendoza Cross [facility] [address] [facility],[place] [address] 12/20/2023 15:37:03 12/20/2023 15:44:03 Cobalamin deficiency 884393567 E53.8 [id number] Mendoza Cross [facility] [address] [facility],[place] [address] 01/31/2024 15:41:06 01/31/2024 16:33:05 Cobalamin deficiency [id number] E53.8 [id number] Mendoza Cross [facility] [address] [facility] [address],[place] [address] 03/18/2024 15:38:22 03/19/2024 09:06:10 Cobalamin deficiency 075394440 E53.8 [id number] Mendoza Cross [facility] [address] [facility] [address],[place] [address] 04/15/2024 15:42:14 04/15/2024 16:08:48 Cobalamin deficiency 715006906 E53.8 [id number] Mendoza Cross [facility] [address] [facility] [address],[place] [address] 05/17/2024 15:38:50 05/17/2024 16:04:40 Cobalamin deficiency 317089066 E53.8 [id number] Mendoza Cross [facility] [address] [facility] [address],[place] [address] 05/28/2024 13:18:33 05/28/2024 13:52:53 Active or passive immunization 584421485 Z23 up to date Adult [facility] th examination 427311212 Z00.00 stable Depression screening 171 675101 Z13.31 SCREENING NEGATIVE [id number] Mendoza Cross [facility] [address] [facility] [address],[place] [address] 06/25/2024 15:37:42 06/25/2024 16:48:47 [id number] Mendoza Cross [facility] [address] [facility] [address],[place] [address] 07/26/2024 15:39:25 07/26/2024 16:00:47 Cobalamin deficiency 376136554 E53.8 [id number] Mendoza Cross [facility] [address] [facility] [address],[place] [address] 08/30/2024 15:35:15 08/30/2024 15:40:01 Cobalamin deficiency 490531057 E53.8 [id number] Mendoza Cross [facility] [address] [facility] [address],[place] [address] 09/27/2024 15:38:25 09/27/2024 15:43:18 Cobalamin deficiency 907903738 E53.8 [id number] Mendoza Cross [facility] [address] [facility] [address],[place] [address] [address] 10/28/2024 15:38:28 10/28/2024 16:00:13 Cobalamin deficiency 379506683 E53.8 [id number] Mendoza Cross [facility] [address] [facility] [address], it[place] [address] 11/27/2024 15:37:45 11/27/2024 15:51:17 Cobalamin deficiency 545337400 E53.8 [id number] Mendoza Cross [facility] [address] [facility] [address], it[address] [place] [facility] [place] [address] 12/30/2024 15:34:37 12/30/2024 16:22:09 Cobalamin deficiency [id number] E53.8 [id number] Mendoza Cross [facility] [address] [facility] [address], it[place] [address] 01/29/2025 15:36:28 01/31/2025 14:05:05 Cobalamin deficiency 562114946 E53.8 [id number] Mendoza Cross [facility] [address] [facility] [address], it[place] [address] 03/14/2025 15:36:58 03/14/2025 15:44:24 Cobalamin deficiency [id number] E53.8 [id number] Mendoza Cross [facility] [address] [facility] [address],[place] [address] [place] [facility] [place] [address] 04/14/2025 15:34:56 04/15/2025 08:23:18 Cobalamin deficiency [id number] E53.8 [id number] Mendoza Cross [facility] [address],[place] [address] 05/21/2025 09:46:26 05/21/2025 11:45:19 Cobalamin deficiency 768836258 E53.8 Health Concerns Section Related Observation LastModified by Organization Detai ls LastModified Time None Recorded Concern Status LastModified by Organization Details LastModified Time None Recorded Advance Directives Directive None Recorded Payers Insurance Date Sequence Insurance Name Policy Number Policy Carroll Covered Member ID Carroll Member ID Guarantor Name 05/27/2025 1 [facility] [id number] Chiquis Yang [id number] Chiquis Yang OBGyn Episode No OBEpisode recorded.
--- OUTSIDE RECORDS SUMMARY | 2025-05-30 15:22 | XMS_ITS | Encounter Summary ---
Author Organization [facility] Address [address] [facility] [address] [place] [address] Phone Care Team Providers Care Timing Adjuster Name Role Phone Huangphong Mendoza Hernandez DO Unavailable Valentina Escalona MD Unavailable Dena Che MESSENGER FLOORPERSON Unavailable [phone] Karrie Umaña NP Unavailable [phone] Mendoza Cross DO Primary Care Provider [phone] Encounter Details Date Type Department Care Team (Late Contact Info) Description 04/18/2018 Procedure Pass [facility] Endoscopy Admitting Dept Virtual Department [address] [place] [address] Social History Tobacco Use Types Packs/Day Years [...] Description 08/13/2025 8:15 AM EST Office Visit [facility] G[facility]ology [facility] [address] [place] [address] Unknown, Unknown, Komal Asher, KORY [address] [place] [address] documented as of this encounter Visit Diagnoses Not on filedocumented in this encounter Additional Health Concerns Infection Onset Date Last Indicated Resolved Time CoV-Risk 12/30/2021 12/30/2021 12/31/2021 11:5 8 AM EDT COVID-19 12/30/2021 12/30/2021 01/20/2022 1:22 AM EDT documented as of this encounter Care Teams Timing Adjuster Relationship Specialty Start Date End Date Mendoza Cross DO PCP - General 09/07/17 Mendoza Cross DO Historical LMR Provider 06/19/17 Valentina Escalona MD 15 [facility], [address] [place] [address] Historical LMR Provider 06/19/17 09/11/21 Dena Che NP [address] [place] [address] [email or web address] Historical LMR Provider 06/19/17 2 Karrie Umaña NP [address] [place] [address] Historical LMR Provider 06/19/17 2 documented as of this encounter Additional Source Comments The information contained in this document represents components of the legal health record. It is not the complete legal health record.[facility]
--- OUTSIDE RECORDS SUMMARY | 2025-05-30 15:22 | XMS_ITS | Encounter Summary ---
Author Organization [facility] Address [address] [facility] [address] [place] [address] Phone Care Team Providers Care Sewing Machine Operator Semiautomatic Name Role Phone America Mendoza Hernandez DO Unavailable Valentina Escalona MD Unavailable Dena Che SKIN CARE CONSULTANT Unavailable [phone] HalethorpeKarrie alston SKIN CARE CONSULTANT Unavailable [phone] Mendoza Cross DO Primary Care Provider [phone] Encounter Details Date Type Department Care Team (Late st Contact Info) Description 07/29/2020 Procedure Pass [facility], Ct Scan - [address] [address] Social History Tobacco Use Types Packs/Day Years [...] 08/13/2025 8:15 AM EST Office Visit [facility] G[facility]ology [facility] [address] [place] [address] Unknown, MD Sydni Reyes Janet Ann, NP [address] [place] [address] documented as of this encounter Visit Diagnoses Not on filedocumented in this encounter Additional Health Concerns Infection Onset Date Last Indicated Resolved Time CoV-Risk 12/30/2021 12/30/2021 12/31/2021 11:5 8 AM EDT COVID-19 12/30/2021 12/30/2021 01/20/2022 1:22 AM EDT documented as of this encounter Care Teams Sewing Machine Operator Semiautomatic Relationship Specialty Start Date End Date Mendoza Cross DO PCP - General 09/07/17 Mendoza Cross DO Historical LMR Provider 06/19/17 Valentina Escalona MD 15 [facility], [address] [place] [address] Historical LMR Provider 06/19/17 09/11/21 Dena Che NP 21 [place] [address] [email or web address] Historical LMR Provider 06/19/17 2 Karrie Umaña NP [address] [place] [address] Historical LMR Provider 06/19/17 2 documented as of this encounter Additional Source Comments The information contained in this document represents components of the legal health record. It is not the complete legal health record.[facility]
--- OUTSIDE RECORDS SUMMARY | 2025-05-30 15:22 | XMS_ITS | Encounter Summary ---
Author Organization [facility] Address [address] [facility] [address] [place] [address] Phone Care Team Providers Care Agricultural Inspector Name Role Phone America Mendoza Hernandez DO Unavailable Valentina Escalona MD Unavailable Dena Che WEBSPHERE DEVELOPER Unavailable JoyKarrie jaffe WEBSPHERE DEVELOPER Unavailable Mendoza Cross DO Primary Care Provider [phone] Encounter Details Date Type Department Care Team (Latest Contact Info) Description 02/06/2018 Transcribe Orders [facility] [address] [place] [address] Reno Stevens MD 10 [facility] 2 [place] [address] [email or web address] Bloating (Primary Dx) Social History Tobacco Use [...] 08/13/2025 8:15 AM EST Office Visit [facility] Gastro[facility]ology [facility] [address] [place] [address] Unknown, Unknown, Komal Asher, WEBSPHERE DEVELOPER 10 [place] [address] documented as of this encounter Results * Comprehensive metabolic panel (02/06/2018 8:57 AM EDT) SODIUM 141 133 - 146 mmol/L [facility] POTASSIUM 4.1 3.3 - 5.1 mmol/L [facility] CHLORIDE 105 96 - 108 mmol/L [facility] CO2 28 21 - 35 mmol/L [facility] BUN 14 6 - 19 mg/dL [facility] CREATININE 0.60 0.5 - 1.5 mg/dL [facility] GLUCOSE 99 70 - 99 mg/dL [facility] ALBUMIN 3.9 3.9 - 4.8 g/dL [facility] TOTAL PROTEIN 6.9 6.5 - 8.0 g/dL [facility] CALCIUM 8.7 8.4 - 10.3 mg/dL [facility] ALKALINE PHOSPHATASE 77 39 - 117 U/L [facility] TOTAL BILIRUBIN 0.5 0.0 - 1.2 mg/dL [facility] AST 18 0 - 37 U/L [facility] ALT 18 0 - 40 U/L [facility] GLOBULIN 3.0 1 - 4.8 g/dL [facility] EGFR 106 >59 mL/min/1.7 3m2 [facility] Comment:If patient is black, multiply result by 1.159. The eGFR calculation has changed from the MDRD equation to the CKD-EPI equation as of November 07, 2017. ANION GAP 12 10 - 20 mmol/L [facility] Blood 02/06/2018 8:57 AM EDT 02/06/2018 9:00 AM EDT us Reno Stevens MD LAB BLOOD ORDERABLES Final Result [address] [address] * CBC (02/06/2018 8:57 AM EDT) WBC 6.33 3.40 - 11.20 K/uL [facility] RBC 4.26 3.80 - 4.80 M/uL [facility] HGB 13.2 12.0 - 15.0 g/dL [facility] HCT 39.6 36.0 - 46.0 % [facility] PLT 211 130 - 400 K/uL [facility] MCV 93.0 79.0 - 98.0 fL [facility] MCH 31.0 27.0 - 34.8 pg [facility] MCHC 33.3 31.5 - 36.0 g/dL [facility] RDW 12.2 10.8 - 14.6 % [facility] MPV 10.6 9.4 - 12.4 fl [facility] NRBC 0.00 /100 WBCs [facility] ABSOLUTE NRBC 0.00 K/uL [facility] Blood 02/06/2018 8:57 AM EDT 02/06/2018 9:00 AM EDT Reno Stevens MD LAB BLOOD ORDERABLES Final Result Performing Organization Address City/State/[facility] Co de Phone Number [facility] [address] [place] [address] documented in this encounter Visit Diagnoses Diagnosis Bloating- Primary Flatulence, eructation, and gas pain documented in this encounter Additional Health Concerns Infection Onset Date Last Indicated Resolved Time CoV-Risk 12/30/2021 12/30/2021 12/31/2021 11:5 8 AM EDT COVID-19 12/30/2021 12/30/2021 01/20/2022 1:22 AM EDT documented as of this encounter Care Teams Agricultural Inspector Relationship Specialty Start Date End Date Mendoza Cross DO [email or web address] PCP - General 09/07/17 Mendoza Cross DO Historical LMR Provider 06/19/17 Valentina Escalona MD [address] [address] [email or web address] Historical LMR Provider 06/19/17 09/11/21 Dena Che NP [address] [place] [address] [email or web address] Historical LMR Provider 06/19/17 2 Karrie Umaña NP [address] [place] [address] Historical LMR Provider 06/19/17 2 documented as of this encounter Additional Source Comments The information contained in this document represents components of the legal health record. It is not the complete legal health record.[facility]
--- OUTSIDE RECORDS SUMMARY | 2025-05-30 15:22 | XMS_ITS | Patient Health Record ---
Author Organization [employer] [facility] Address [address] [facility] [address] [place] [id number] Care Team Providers Care Laundry Operator Name Role Phone RU FRANKEL Primary Care Provider RILEY Capps Unavailable [phone] Allergies Allergen (clinical drug ingredient) Drug/Non Drug [...] Notes Problem Gastro-esophageal reflux disease without esophagitis (821660658) Gastro-esophageal reflux disease without esophagitis (K21.9) Active confirmed Problem Gastric ulcer (425066969) Gastric ulcer, unspecified as acute or chronic, without hemorrhage or perforation (K25.9) Active confirmed Problem Gastroparesis (019616051) Gastroparesis (K31.84) Active confirmed Problem Liver disease (855844953) Liver disease, unspecified (K76.9) Active confirmed Vital Signs Temperature 97.3 degrees Fahrenheit 07/08/2024 Blood pressure diastolic 62 mm Hg 07/08/2024 Height 65 in 07/08/2024 Blood pressure systolic 108 mm Hg 07/08/2024 Weight 155 lbs 07/08/2024 BMI 25.79 kg/m2 07/08/2024 Encounters Encounter Location Date Provider Diagnosis [address] [place] [id number] 07/08/2024 RILEY ZHANG Encounter for gynecological examination (general) (routine) without [...] Provider Name:RILEY Echols, 07/14/2025 08:00:00 AM, [address], [place], [address], Provider Name:RILEY Echols, 08/08/2025 08:30:00 AM, [address], [place], [address], Insurance Providers Payer Name Payer Address Payer Phone Subscriber Number Group Number Insured Name Patient Relationship to Insured Coverage Start Date Coverage End Date [facility] [address] [place] [address] [id number] DAEN HAMILTON Self - patient is the insured 3 Medical (General) History Medical History History ICD Code Liver disease, unspecified K76.9 Gastroparesis K31.84 Gastro-esophageal reflux disease without esophagitis K21.9 Surgical History Surgery Date(Month/Year) Laparoscopic Cholecystectomy (in her ear ly 32's)
--- OUTSIDE RECORDS SUMMARY | 2025-05-30 15:22 | XMS_ITS | Encounter Summary ---
Author Organization [facility] Address [address] [facility] [address] [place] [phone] Phone Care Team Providers Care Prisoner Classification Interviewer Name Role Phone Mendoza Cross DO Unavailable Mendoza Cross DO Primary Care Provider Encounter Details Date Type Department Care Team (Latest Contact Info) Description 07/04/2022 Transcribe Orders Virtual Department [address] [place] [address] Komal Troy NP [address] [place], [place] [id number] Gastroparesis (Primary Dx) Social History Tobacco Use [...] Description 08/13/2025 8:15 AM EST Office Visit [facility] [address] [place], [place] [id number] Unknown, Unknown, Komal Asher NP [address], [place] [phone] documented as of this encounter Visit Diagnoses Diagnosis Gastroparesis- Primary documented in this encounter Care Teams Prisoner Classification Interviewer Relationship Specialty Start Date End Date Mendoza Cross MaryDO PCP - General 09/07/17 Mendoza Cross [email or web address] Historical LMR Provider 06/19/17 documented as of this encounter Additional Source Comments The information contained in this document represents components of the legal health record. It is not the complete legal health record.[facility]
[2025-05-30 19:34] VITALS: BP 140/81; PULSE 67; RESP 16; TEMP 36.9; O2SAT 98
[2025-05-30 20:04] VITALS: BP 140/81; PULSE 67; RESP 16; TEMP 36.9; O2SAT 98
== END 2025-05-30 20:05 | disposition home or self-care (01) ==
PROVIDERS: Physician Assistant; Emergency Provider Emergency Medicine Emergency Medical Services; PCP Internal Medicine
DX: R10.9 Unspecified abdominal pain (principal); M54.9 Dorsalgia, unspecified; R10.31 Right lower quadrant pain; R11.0 Nausea
CPT/HCPCS: 36415; 74177; 76830; 76856; 80053; 81001; 83690; 85025; 96361; 96374; 96375; 99284; 99285; J1885; J2270; J2405

== ENCOUNTER → 2025-05-30 14:45 | Outpatient (BNV) | payer OTHER, SELFPAY | PROVIDERS: Emergency Provider Emergency Medicine Emergency Medical Services; PCP Internal Medicine; Visit Provider Radiology Diagnostic Radiology | DX: K57.30 Diverticulosis of large intestine without perforation or abscess without bleeding (principal); K44.9 Diaphragmatic hernia without obstruction or gangrene; R10.31 Right lower quadrant pain | CPT/HCPCS: 74177; 76830; 76856 ==